=== PATIENT | male | born 1935 | race Caucasian/White ===

== ENCOUNTER 2019-04-24 00:55 | Day surgery (SDC) | payer MEDICARE, SELFPAY ==
[2019-04-08 13:19] VITALS: BMI 26.6
--- NOTE | 2019-04-23 21:47 | HP_ITS ---
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 HISTORY: The patient is 84, he presented with a growth on the right helix. This is just barely on the posterior aspect, it is 6 mm in diameter, pink and firm. Because of its tenderness, he finds it difficult to lie on that side. We discussed excision of this. I believe it is probably a skin cancer. We will do this under frozen section in the operating room. He understands there may be need for closure that could be slightly deforming to his ear and possibly including a skin graft. There also may be infection or numbness resulting from this surgery. He would like to proceed. MEDICATIONS: He takes: 1. Lisinopril. 2. Mirtazapine. 3. Gabapentin. 4. Acetaminophen. 5. 81 mg of aspirin. ALLERGIES: HE HAS NO KNOWN ALLERGIES TO MEDICATIONS. PAST SURGICAL HISTORY: He has had a prior hernia repair and left and right knee replacements. HABITS: He reports that he is a smoker of cigars. REVIEW OF SYSTEMS: He indicates just the arthritic joint pain. FAMILY HISTORY: Noncontributory. SOCIAL HISTORY: He lives in [place]. He is retired. PHYSICAL EXAMINATION: GENERAL: He is alert and informative. He is 5 feet 8 inches, 175 pounds, in no acute distress. HEENT EXAM: Reveals the mass just to the posterior aspect of his right upper helix. This is a 6 mm nodule. There is no palpable adenopathy. CHEST: Clear to auscultation. HEART: Regular rate and rhythm by palpation. ABDOMEN: Soft and nontender. EXTREMITIES: Normal. 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 PLAN: Excision under local anesthetic with frozen section. He will remain on his aspirin. [facility]
[2019-04-24] VITALS (10 sets, daily range): BP systolic 135–154; BP diastolic 68–83; PULSE 57–67; RESP 16–20; TEMP 36.2; O2SAT 90–98
--- NOTE | 2019-04-24 07:18 | WPDHPUPDATE1 ---
History and Physical Update Update Date/Time: 04/24/19 07:18 History and Physical has been reviewed, including an updated exam of the patient. There are NO changes in the patient's condition. Risks, benefits, and alternatives have been discussed and questions answered. Patient agrees to proceed with procedure.
--- NOTE | 2019-04-24 07:33 | SUR.PREOP ---
PT STATED HE DID NOT TAKE ANY HOME MEDICATIONS. HE PLANS TO TAKE WHEN HE GETS HOME FROM THE HOSPITAL
[2019-04-24] MEDS: LIDO 1%/EPINEPHRINE 1:100,000 20 ML VIAL 7 ML INFILTRATE (08:09)
--- NOTE | 2019-04-24 08:28 | SUR.OPER ---
EBL:5CC
--- NOTE | 2019-04-24 08:46 | PM.OP ---
Procedure Note - Brief Procedure Note - Brief Date of procedure: 04/24/19 Pre-op diagnosis: Suspicious Neoplasm Right Ear Post-op diagnosis: same Procedure performed: 1.0 cm excision of tender nodule of right ear with FS and intermediate repair 3.0 cm. Anesthesia: local Surgeon: Oscar Wong MD Estimated blood loss (mL): 1 Drains: No Packing: No Pathology: yes Complications: No immediate complications Condition: stable Disposition: same day
--- NOTE | 2019-04-24 09:09 | PM.PROC ---
Procedure Note - Detailed Date of procedure: 04/24/19 Pre-op diagnosis: Suspicious Neoplasm Right Ear Post-op diagnosis: same Procedure performed: 1 cm excision of tender nodule of the right ear with frozen section. Intermediate repair 3 cm Description of procedure: Jen Benítez Staacacia Hartzel site on the ear was marked while the patient was in the holding area. He was taken to the operative room and placed supine on the operating table. The area was prepped and draped in the usual fashion. The site was marked for excision and locally infiltrated with 1% lidocaine with epinephrine. The site was excised with about 3 mm margin. The most superior aspect was marked with a suture and the specimen was sent to frozen section. The pathologist said that it does not appear to be a skin cancer but all margins are free. The final diagnosis is deferred for permanent sections. The wound was closed by undermining 3-5 mm on all sides and and removing the standing cones on both ends. The repair was done with a running or interrupted 5 0 nylon suture. This was tolerated well. He is discharged home without prescriptions Surgeon: Oscar Wong MD
== END 2019-04-24 09:10 | disposition home or self-care (01) ==
PROVIDERS: PCP Family Medicine; Visit Provider Plastic Surgery
PROC: (CPT 11641; principal; 2019-04-24 07:30)
DX: C44.222 Squamous cell carcinoma of skin of right ear and external auricular canal (principal); Z72.0 Tobacco use; Z79.82 Long term (current) use of aspirin
CPT/HCPCS: 11641; 12052; 88305; 88331; A9270

== ENCOUNTER 2019-04-28 10:33 | Outpatient (CLI) | payer MEDICARE, SELFPAY ==
--- NOTE | ~2019-04-28 | XR_ITS ---
EXAMINATION: XR chest 2V EXAM DATE: 04/28/2019 10:42 INDICATION: Cough. TECHNIQUE: Frontal and lateral projections of the chest obtained and reviewed. There is no prior diane dy for comparison. FINDINGS: Ill-defined bibasilar airspace disease, could be developing bronchopneumonia. Please clini sparkle correlate. Cardiomediastinal silhouette is normal. There is no pneumothorax suspected. There ar e no pleural effusions. Cervical fusion hardware. Right midlung zone granuloma. IMPRESSION: Ill-defined bibasilar reticulonodular opacities, could be developing pneumonia. Suki finnegan diagnosis includes edema, chronic interstitial lung disease. Clinical correlation. Reviewed, dictated and finalized at location B. T PACKER FACE AND FILL IMPRESSION: Ill-defined bibasilar reticulonodular opacities, could be developi ng pneumonia. Differential diagnosis includes edema, chronic interstitial lung disease. Clinical correlation.
== END 2019-04-28 10:34 | disposition home or self-care (01) ==
LOC: ANHBWCIMG 10:36
PROVIDERS: PCP Family Medicine; Visit Provider Family Medicine
DX: R05 Cough (principal); Z87.891 Personal history of nicotine dependence; R91.8 Other nonspecific abnormal finding of lung field
CPT/HCPCS: 71046

== ENCOUNTER 2019-05-19 10:16 | Outpatient (CLI) | payer MEDICARE, SELFPAY ==
[2019-05-19 17:21] LABS: Add Urine Microscopic? NO; Appearance Urine Clear (Clear); Bilirubin Urine Negative (Negative); Blood Urine Negative (Negative); Color Urine Straw (Yellow); Glucose Urine UA Negative (Negative); Ketones Urine Negative (Negative); Leukocyte Esterase Ur Negative LEU/UL (Negative); Nitrate Urine Negative (Negative); Protein Urine Negative (Negative); Specific Grav Ur 1.013 (1.001-1.035); Urobilinogen Urine Negative mg/dL (<2.0)
[2019-05-19 17:27] LABS: Basophils Absolute Auto 0.1 K/mm3 (0.0-0.1); Basophils Percent Auto 0.6 % (0.2-1.2); Eosinophils Absolute Auto 0.2 K/mm3 (0-0.3); Eosinophils Percent Auto 1.4 % (0-4.4); Hematocrit 46.9 % (42.0-52.0); Hemoglobin 15.2 g/dL (14.0-18.0); Immature Granulocyte Absolute 0.13 K/mm3 (0.00-0.031); Immature Granulocyte Percent A 0.9 % (0-0.5); Lymphocytes Absolute Auto 1.93 K/mm3 (0.9-3.2); Lymphocytes Percent Auto 13.1 % (18.3-44.2); Mean Corpuscular HGB Conc 32.4 g/dl (32-36); Mean Corpuscular Hemoglobin 31.2 pg (26-34); Mean Corpuscular Volume 96.3 fl (80-100); Mean Platelet Volume 10.5 fl (7.4-10.4); Monocytes Absolute Auto 0.8 K/mm3 (0.1-0.6); Monocytes Percent Auto 5.2 % (2.6-8.5); Neutrophils Absolute Auto 11.6 K/mm3 (1.3-6.7); Neutrophils Percent Auto 78.8 % (45.5-73.1); Platelet Count Result 268 k/mm3 (150-375); Red Blood Count 4.87 M/mm3 (4.6-6.20); Red Cell Distribution Width 15.5 % (11.5-14.5); White Blood Count 14.7 K/mm3 (4.5-10.0)
[2019-05-19 17:28] LABS: Alanine Aminotransferase 18 U/L (4-50); Albumin Level 4.6 g/dL (3.5-5.1); Alkaline Phosphatase 102 U/L (38-126); Aspartate Amino Transferase 31 U/L (17-59); Bilirubin,Total 0.5 mg/dL (0.2-1.3); Blood Urea Nitrogen 41 mg/dL (9-20); Calcium 9.4 mg/dL (8.4-10.2); Carbon Dioxide 27 mmol/L (22-30); Chloride 97 mmol/L (98-107); Cholesterol 245 mg/dL (0-200); Estimated Glomerular Filt Rate 49; Glucose 119 mg/dL (75-110); HDL Direct 78 mg/dL; Potassium 4.8 mmol/L (3.4-5.0); Sodium 134 mmol/L (137-145); Triglycerides 248 mg/dL (<150)
[2019-05-19 17:39] LABS: LDL Cholesterol Direct 140 mg/dL
[2019-05-19 17:43] LABS: Vitamin D 25 Hydroxy 43.4 ng/mL
[2019-05-19 17:59] LABS: Prostate Specific Antigen 7.9 ng/mL (< OR = 4.0)
[2019-05-19 18:35] LABS: Folic Acid > 20.0 ng/mL (2.76->20)
== END 2019-05-19 10:17 | disposition home or self-care (01) ==
PROVIDERS: PCP Family Medicine; Visit Provider Family Medicine
DX: R05 Cough (principal); R97.20 Elevated prostate specific antigen [PSA]; I10 Essential (primary) hypertension; Z79.899 Other long term (current) drug therapy
CPT/HCPCS: 36415; 80053; 80061; 81003; 82306; 82607; 82746; 84153; 84443; 85025

== ENCOUNTER 2019-05-30 08:57 | Outpatient (CLI) | payer MEDICARE, SELFPAY ==
[2019-05-30 17:01] LABS: Basophils Absolute Auto 0.1 K/mm3 (0.0-0.1); Basophils Percent Auto 0.8 % (0.2-1.2); Eosinophils Absolute Auto 0.3 K/mm3 (0-0.3); Eosinophils Percent Auto 2.9 % (0-4.4); Hematocrit 41.3 % (42.0-52.0); Hemoglobin 13.3 g/dL (14.0-18.0); Immature Granulocyte Absolute 0.09 K/mm3 (0.00-0.031); Immature Platelet Fraction Pct 3.1 % (0.9-11.2); Lymphocytes Percent Auto 22.9 % (18.3-44.2); Mean Corpuscular HGB Conc 32.2 g/dl (32-36); Mean Corpuscular Hemoglobin 31.3 pg (26-34); Mean Corpuscular Volume 97.2 fl (80-100); Monocytes Absolute Auto 0.8 K/mm3 (0.1-0.6); Monocytes Percent Auto 8.4 % (2.6-8.5); Neutrophils Absolute Auto 5.9 K/mm3 (1.3-6.7); Platelet Count Result 230 k/mm3 (150-375); Red Blood Count 4.25 M/mm3 (4.6-6.20); Red Cell Distribution Width 15.9 % (11.5-14.5); White Blood Count 9.2 K/mm3 (4.5-10.0)
[2019-05-30 17:08] LABS: Blood Urea Nitrogen 39 mg/dL (9-20); Calcium 8.4 mg/dL (8.4-10.2); Carbon Dioxide 24 mmol/L (22-30); Chloride 104 mmol/L (98-107); Estimated Glomerular Filt Rate 53; Glucose 137 mg/dL (75-110); Magnesium 1.9 mg/dL (1.6-2.3); Phosphorus 4.3 mg/dL (2.5-4.5); Potassium 4.4 mmol/L (3.4-5.0); Sodium 137 mmol/L (137-145)
[2019-05-30 18:06] LABS: Vitamin D 25 Hydroxy 48.1 ng/mL
== END 2019-05-30 08:58 | disposition home or self-care (01) ==
LOC: ANHBWCLAB 08:59
PROVIDERS: PCP Family Medicine; Visit Provider Family Medicine
DX: R25.2 Cramp and spasm (principal); Z79.899 Other long term (current) drug therapy
CPT/HCPCS: 36415; 80048; 82306; 83735; 84100; 84443; 85025; 85055; 86140

== ENCOUNTER 2019-09-16 13:27 | Emergency (ER) | payer MEDICARE, SELFPAY ==
--- NOTE | ~2019-09-16 | XR_ITS ---
XR chest 2V 09/16/2019 14:13 Indication: Cough Procedure: 2 view chest Comparison: 04/28/2019 Findings: Coarse interstitial changes of the lung bases, likely chronic. Heart size normal. No edema or pneumothorax. No acute osseous abnormality. Impression: 1: Coarse bilateral interstitial infiltrates of the lung bases, likely chronic fibrosis. Reviewed, dictated and finalized at location B. Impression: 1: Coarse bilateral interstitial infiltrates of the lung bases, likely chronic fibrosis.
== END 2019-09-16 13:30 | disposition left against medical advice (07) ==
PROVIDERS: Emergency Provider Family Medicine; PCP Family Medicine
DX: R05 Cough (principal)
CPT/HCPCS: 71046; 99199

== ENCOUNTER 2019-12-24 17:06 | Emergency (ER) | payer MEDICARE, SELFPAY ==
[2019-12-24 17:15] VITALS: BP 188/134; PULSE 91; RESP 18; TEMP 37; O2SAT 98
--- NOTE | 2019-12-24 17:28 | ED.EXTPRO ---
HPI - Extremity Problem General Chief complaint: Extremity Injury, Lower Stated complaint: shortness of breath/cough/legs jerking Time Seen by Provider: 12/24/19 17:28 Source: patient History of Present Illness HPI Narrative: Patient presents with right knee pain. Patient states he has a chronic cough and short of breath at times. Patient states he is to see a learning support assistant for evaluation of his cough and breathing problems. Patient denies any shortness of breath at present no chest pain. Patient is here today because of his right knee pain. Patient does not recall any injury to his knee but had a knee replacement several years ago. Patient states he had x-ray of the knee 2 to 3 weeks ago which he thinks was normal. Patient states he ran out of his medication that usually normally takes for his pain and cannot get it refilled until the of this month.Patient states he ran out of his xtampza xr 13.5 mg and can not get any refills until the of this month. MD Complaint: extremity pain Related Data Home Medications Medication Instructions Recorded Confirmed aspirin 81 mg tablet,delayed 81 mg PO DAILY 01/23/19 12/15/19 release cholecalciferol (vitamin D3) 50 2,000 unit PO DAILY 01/23/19 12/15/19 mcg (2,000 unit) capsule melatonin 10 mg capsule 10 mg PO ONCE PRN cap 01/23/19 12/15/19 Allergies Allergy/AdvReac Type Severity Reaction Status Date / Time No Known Allergies Allergy Unverified 12/09/19 13:29 Review of Systems Review of Systems: Narrative: CONSTITUTIONAL: Denies fever, chills, or sweats. EYES: Denies visual changes, redness, or discharge. ENT: Denies rhinorrhea, congestion, sore throat, or otalgia. CARDIOVASCULAR: Denies chest pain, palpitations, or edema. RESPIRATORY: Denies cough or dyspnea. GASTROINTESTINAL: Denies abdominal pain, nausea, vomiting, or diarrhea. GENITOURINARY: Denies dysuria or hematuria. SKIN: Denies rash or itching. MUSCULOSKELETAL: Denies back pain, joint pain, or myalgia. NEUROLOGIC: Denies headache, numbness, or weakness. PSYCHIATRIC: Denies anxiety or depression. [facility] Past Medical History Medical History (Updated 12/24/19 @ 17:33 by Brittany R. Londono, GRAIN MILL WORKER) Age-related osteoporosis without current pathological fracture Anxiety Arthritis Bilateral chronic knee pain Current moderate episode of major depressive disorder FH: total knee replacement Generalized neuropathy Hypertension Moderate episode of recurrent major depressive disorder Other chronic pain Other halfway (current) drug therapy Surgical History Surgical History (Updated 12/24/19 @ 17:33 by JAIMEE Mcpherson) H/O hernia repair History of ear surgery History of knee replacement Social History Social History Smoking packs per day: 1 Smoking cigarettes per day: 20.0 Years smoked: 50 Smoking pack-years: 50.00 Smoking status: Light tobacco smoker Tobacco type: cigars Alcohol intake: never Substance use: never Comments At time of signature, agree with nursing past medical, surgical, social and family history. There is no relevant family history pertinent to the presenting complaint Exam Narrative: Exam Narrative: GENERAL: Well-appearing, well-nourished, and in no acute distress. HEAD: Normocephalic, atraumatic. EYES: PERRLA and EOMI. ENT: Nares clear, no rhinorrhea or epistaxis. Mucous membranes moist. NECK: Supple. CHEST: Clear to auscultation. No respiratory distress. HEART: Regular rate and rhythm. No murmur heard. Normal peripheral pulses. ABDOMEN: Soft, nontender, nondistended, normal active bowel sounds. EXTREMITIES: Normal range of motion. No edema. SKIN INTACT. NO DEFORMITY. NORMAL ROM, HAS FULL EXTENSION AND FLEXION. COMPARTMENTS SOFT. NEGATIVE ANTERIOR, POSTERIOR DRAWER SIGNS ON TEST. NO CREPITUS. DP PULSE, NORMAL CAPILLARY REFILL MCMURRAYS, PAIN TO RIGHT MEDIAL AND DISTAL KNEE WITH KNEE FLEXION, INTERNAL AND EXTER
== END 2019-12-24 17:48 | disposition home or self-care (01) ==
PROVIDERS: Emergency Provider Nurse Practitioner Family; PCP Family Medicine
DX: S80.01XA Contusion of right knee, initial encounter (principal); X58.XXXA Exposure to other specified factors, initial encounter; Z96.653 Presence of artificial knee joint, bilateral; M19.90 Unspecified osteoarthritis, unspecified site; I10 Essential (primary) hypertension; F17.210 Nicotine dependence, cigarettes, uncomplicated; Z79.82 Long term (current) use of aspirin; G62.9 Polyneuropathy, unspecified
CPT/HCPCS: 99212; G0463

== ENCOUNTER 2020-04-23 18:46 | Inpatient (IN) | payer MEDICARE, SELFPAY ==
[2020-04-23] VITALS (28 sets, daily range): BP systolic 101–142; BP diastolic 49–103; PULSE 61–112; RESP 13–24; TEMP 36.2; O2SAT 93–99
--- NOTE | ~2020-04-23 | XR_ITS ---
EXAMINATION: XR chest 1V portable EXAM DATE: 04/23/2020 20:07 INDICATION: Shortness of breath, extremity swelling. TECHNIQUE: Portable AP frontal chest x-ray was obtained. Comparison is made to prior examination from 09/16/2019, 04/28/2019. FINDINGS: There is mild cardiomegaly. Again there is abnormal basilar reticulation. Given this has be en present on last 2 chest x-rays, probably interstitial lung disease. Can't exclude acute component of pulmonary edema. No confluent consolidation, pneumothorax or pleural effusion suspected. There is aortic arteriosclerosis. There are bony degenerative changes. Cervical fusion hardware. IMPRESSION: 1. Increased basilar reticulation, chronic interstitial lung disease. 2. Superimposed pulmonary edema not excludable. 3. Cardiomegaly. Reviewed, dictated and finalized at location A. FARMER
--- NOTE | ~2020-04-23 | US_ITS ---
EXAMINATION: US venous doppler [facility] DATE: 04/24/2020 13:28 INDICATION: Bilateral lower limb edema TECHNIQUE: Mcarthur scale images without and with compression and Doppler images of the bilateral lower e xtremity veins were obtained. COMPARISON: None FINDINGS: The right common femoral vein, profunda femoral vein, femoral vein, popliteal vein, peroneal trunk, p osterior tibial veins, and greater saphenous vein are patent. The left common femoral vein, profunda femoral vein, femoral vein, popliteal vein, peroneal trunk, po sterior tibial veins, and greater saphenous vein are patent. IMPRESSION: 1. Patent bilateral lower extremity veins. No evidence of deep venous thrombosis. Reviewed, dictated and finalized at location A. TITATIVE RESEARCHER IMPRESSION: 1. Patent bilateral lower extremity veins. No evidence of deep venous thrombosi s.
--- NOTE | ~2020-04-23 | US_ITS ---
EXAMINATION: US renal BI DATE: 04/24/2020 13:28 INDICATION: Acute kidney injury TECHNIQUE: Multiple grayscale and Doppler ultrasound images of the kidneys were obtained. COMPARISON: None. FINDINGS: The right kidney measures 8.6 x 4.5 x 4.7 cm. The left kidney measures 8.6 x 5.4 x 6.6 cm. The kidneys demonstrate increased parenchymal echogenicity. There is no hydronephrosis. The bladder i s decompressed by Painter catheter. IMPRESSION: 1. Medical renal disease with bilateral renal atrophy. Reviewed, dictated and finalized at location A. RSITY SPECIALIST
--- NOTE | 2020-04-23 19:28 | ECG_ITS ---
Measurements Intervals [place] Rate: 94 P: AL: 0 QRS: -31 QRSD: 107 T: 61 QT: 381 QTc: 478 Interpretive Statements SINUS RHYTHM CHANGED TO VENTRICULAR TACHYCARDIA VENTRICULAR COUPLETS LEFT AXIS DEVIATION INCOMPLETE RIGHT BUNDLE BRANCH BLOCK POOR R WAVE PROGRESSION, ANTERIOR LEADS BORDERLINE ST-T WAVE ABNORMALITY- HIGH LATERAL LEADS BASELINE ARTIFACT- I, III, AVL ABNORMAL ECG Electronically Signed On 04-24-2020 7:52:59 BALE PILER by Flako Silva D.O.
[2020-04-23 19:53] LABS: Basophils Absolute Auto 0.1 K/mm3 (0.0-0.1); Basophils Percent Auto 0.9 % (0.2-1.2); Eosinophils Absolute Auto 0.2 K/mm3 (0-0.3); Eosinophils Percent Auto 1.6 % (0-4.4); Hematocrit 26.9 % (42.0-52.0); Hemoglobin 8.7 g/dL (14.0-18.0); Immature Granulocyte Absolute 0.04 K/mm3 (0.00-0.031); Immature Granulocyte Percent A 0.4 % (0-0.5); Lymphocytes Absolute Auto 1.11 K/mm3 (0.9-3.2); Lymphocytes Percent Auto 11.8 % (18.3-44.2); Mean Corpuscular HGB Conc 32.3 g/dl (32-36); Mean Corpuscular Hemoglobin 31.8 pg (26-34); Mean Corpuscular Volume 98.2 fl (80-100); Monocytes Absolute Auto 0.7 K/mm3 (0.1-0.6); Monocytes Percent Auto 7.9 % (2.6-8.5); Neutrophils Absolute Auto 7.3 K/mm3 (1.3-6.7); Neutrophils Percent Auto 77.4 % (45.5-73.1); Platelet Count Result 300 k/mm3 (150-375); Red Blood Count 2.74 M/mm3 (4.6-6.20); Red Cell Distribution Width 15.6 % (11.5-14.5); White Blood Count 9.4 K/mm3 (4.5-10.0)
[2020-04-23 19:59] LABS: INR 1.1; Prothrombin Time 14.5 Seconds (11.1-14.7)
[2020-04-23 20:00] LABS: Partial Thromboplastin Time 36.3 SECONDS (22.3-36.8)
[2020-04-23 20:03] LABS: Anion Gap 7 mmol/L (8-16); Blood Urea Nitrogen 68 mg/dL (9-20); Calcium 8.2 mg/dL (8.4-10.2); Carbon Dioxide 22 mmol/L (22-30); Chloride 103 mmol/L (98-107); Estimated CRCL calculation 30 ml/min; Estimated Glomerular Filt Rate 34; Glucose 127 mg/dL (75-110); Potassium 5.2 mmol/L (3.4-5.0); Sodium 132 mmol/L (137-145)
--- NOTE | 2020-04-23 20:06 | ED.GENADULT ---
HPI - General Adult General Chief complaint: Shortness of Breath/Dyspnea Stated complaint: swelling, drainage legs, sob Time Seen by Provider: 04/23/20 19:53 Source: patient and family Limitations: no limitations History of Present Illness HPI narrative: Patient is 85 years old white male brought to the emergency room by his son-in-law complaining of swelling of the legs and the scrotum, shortness of breath and coughing for the last 2 weeks. Was admitted to [facility] 1 and half week ago and got discharged without a known diagnosis. Patient is DNR. Denies history of COVID-19 or exposure to anybody known having COVID-19. Patient denies any fever, chills, nausea, vomiting, chest pain. Patient is telling me that he is leaking out of the skin lately. History of hypertension, used to be on aspirin which is stopped recently for unknown reason. Related Data Home Medications Medication Instructions Recorded Confirmed aspirin 81 mg tablet,delayed 81 mg PO DAILY 01/23/19 04/12/20 release cholecalciferol (vitamin D3) 50 2,000 unit PO DAILY 01/23/19 04/12/20 mcg (2,000 unit) capsule melatonin 10 mg capsule 10 mg PO ONCE PRN cap 01/23/19 04/12/20 carvedilol 3.125 mg tablet 3.125 mg PO Q12H 04/22/20 furosemide 40 mg tablet 40 mg PO BID 04/22/20 hydralazine 10 mg tablet 10 mg PO TID 04/22/20 isosorbide dinitrate 5 mg tablet 5 mg PO BID 04/22/20 ropinirole 0.5 mg tablet 0.5 mg PO DAILY tablet 04/22/20 Allergies Allergy/AdvReac Type Severity Reaction Status Date / Time No Known Allergies Allergy Verified 04/23/20 20:19 Review of Systems Review of Systems: Narrative: CONSTITUTIONAL: Denies fever, chills, or sweats. EYES: Denies visual changes, redness, or discharge. ENT: Denies rhinorrhea, congestion, sore throat, or otalgia. CARDIOVASCULAR: Denies chest pain, palpitations, or edema. RESPIRATORY: Coughing, shortness of breath GASTROINTESTINAL: Denies abdominal pain, nausea, vomiting, or diarrhea. GENITOURINARY: Denies dysuria or hematuria. SKIN: Generalized edema MUSCULOSKELETAL: Denies back pain, joint pain, or myalgia. NEUROLOGIC: Denies headache, numbness, or weakness. PSYCHIATRIC: Denies anxiety or depression. [facility] Past Medical History Medical History Age-related osteoporosis without current pathological fracture Anxiety Arthritis Bilateral chronic knee pain Current moderate episode of major depressive disorder FH: total knee replacement Generalized neuropathy Hypertension Moderate episode of recurrent major depressive disorder Other chronic pain Other technician terminal and repeater (current) drug therapy Surgical History Surgical History H/O hernia repair History of ear surgery History of knee replacement Social History Social History Smoking packs per day: 1 Smoking cigarettes per day: 20.0 Years smoked: 50 Smoking pack-years: 50.00 Smoking status: Light tobacco smoker Tobacco type: cigars Second hand tobacco smoke exposure: No Alcohol intake: never Substance use: never Substance use type: does not use Gender identity (if verbalized by the patient): Male Spiritual care concerns: No Agree to blood products: Yes Exam Narrative: Exam Narrative: General appearance: Well-developed, well-nourished Skin: 3+ edema lower extremities, scrotum and penis Head: Normocephalic, nontraumatic Eyes: Clear conjunctiva ENT: Oropharynx normal, ears normal, nose normal Neck: Supple, nontender Chest and respiratory: Diminished and fair entry bilaterally, basal rales bilaterally. Heart: Irregular heartbeat Abdomen: Soft, nontender, no organomegaly, quiet bowel sounds, rectal exam showed no stool in the rectal pouch, guaiac negative Vascular: Normal peripheral pulses, normal capillary refill. Musculoskeletal: Normal range of motion, nontender back Ne
[2020-04-23] MEDS: NITROGLYCERIN OINTMENT 1 INCH DOSE (20:10)
[2020-04-23] MEDS: FUROSEMIDE INJ 100 MG/10 ML VIAL 60 MG IV PUSH (20:16)
--- NOTE | 2020-04-23 20:16 | PC.NURSE ---
PENNY Alamo RN administered 60 mg lasix and placed 1 inch nitro paste on Pt. L arm.
[2020-04-23 20:27] LABS: NT Pro B Type Natriuretic Pept 27400 PG/ML (5-100)
[2020-04-23 20:28] LABS: NT Pro B Type Natriuretic Pept 27700 PG/ML (5-100); Troponin I 0.067 ng/mL (0.000-0.034)
[2020-04-23] MEDS: MORPHINE SULFATE (*CRX) 4 MG/ML INJ IV PUSH (20:56)
[2020-04-23] MEDS: ONDANSETRON INJ 4 MG/2 ML VIAL IV PUSH (20:56)
[2020-04-23] MEDS: AMIODARONE 150 MG/D5W 100 ML 150 MG/100 ML BAG 600 MG IV CONT (20:58)
--- NOTE | 2020-04-23 21:55 | ECG_ITS ---
Measurements Intervals [place] Rate: 86 P: [place]: 0 QRS: -53 QRSD: 139 T: 121 QT: 387 QTc: 465 Interpretive Statements SINUS RHYTHM VENTRICULAR TRIPLETS AND VENTRICULAR PREMATURE COMPLEXES INTRAVENTRICULAR CONDUCTION DELAY POOR R WAVE PROGRESSION, ANTERIOR LEADS BORDERLINE T WAVE ABNORMALITY- INF/HIGH LAT LEADS BASELINE ARTIFACT- V6 ABNORMAL ECG Electronically Signed On 04-24-2020 8:00:59 COMMERCIAL CLEANER by Flako Silva D.O.
--- NOTE | 2020-04-23 21:55 | ECG_ITS ---
Measurements Intervals [place] Rate: 89 P: 104 IA: 147 QRS: -52 QRSD: 119 T: 116 QT: 337 QTc: 412 Interpretive Statements SINUS RHYTHM FREQUENT VENTRICULAR TRIPLETS INCOMPLETE RIGHT BUNDLE BRANCH BLOCK POOR R WAVE PROGRESSION, ANTERIOR LEADS BORDERLINE ST ABNORMALITY- HIGH LATERAL LEADS ABNORMAL ECG Electronically Signed On 04-24-2020 7:55:25 KITCHEN CLERK by Flako Silva D.O.
[2020-04-24] VITALS (26 sets, daily range): BP systolic 107–131; BP diastolic 45–99; PULSE 47–114; RESP 13–20; TEMP 36.1–37.2; O2SAT 90–100; BMI 32.8
[2020-04-24 03:23] LABS: Troponin I 0.069 ng/mL (0.000-0.034)
[2020-04-24] MEDS: HYDROcodone/acetaminophen (*CRX) 10-325 MG TABLET 1 TAB PO ×3 (04:41→21:43)
[2020-04-24 05:31] LABS: Anion Gap 9 mmol/L (8-16); Blood Urea Nitrogen 66 mg/dL (9-20); Calcium 8.5 mg/dL (8.4-10.2); Carbon Dioxide 21 mmol/L (22-30); Chloride 102 mmol/L (98-107); Estimated CRCL calculation 30 ml/min; Estimated Glomerular Filt Rate 34; Glucose 121 mg/dL (75-110); Potassium 5.1 mmol/L (3.4-5.0); Sodium 132 mmol/L (137-145)
[2020-04-24] MEDS: NITROGLYCERIN OINTMENT 1 INCH DOSE TRANSDERM (05:34)
[2020-04-24 05:49] LABS: Troponin I 0.062 ng/mL (0.000-0.034)
--- NOTE | 2020-04-24 08:07 | PM.IMHP ---
H&P: HPI History of Present Illness Date/Time: 04/24/20 08:07 Chief Complaint: Scrotal and leg edema Narrative: Chong Ward is a 85 year old male with HTN and ?CHF here for LOPEZ with scrotal and leg edema. Patient states he has had lower extremity edema with scrotal edema for the past 2-3 weeks. He presented to [facility] and was hospitalized for 5 days. He initially states that they did not know what was wrong with him but later states that was diagnosed with congestive heart failure. He returned home and was there for about 10 days until returning to [facility] for the similar symptoms and was hospitalized again for 2 more days. He was discharged on SundayApril 16. Since that time he has noted increasing edema including scrotal edema. Records in the chart showing patient hospitalized at [facility] from 04/02 to 04/07/20. He was treated for cellulitis of the left foot. He also had RENATO/CKD and hyponatremia and decompensated dCHF. Echo with EF 45-50%, no wall motion abnormalities, Grade II diastolic dysfunction, JAIME but no RVSP measurements. Stress test 04/06/20 showing no evidence of VT or infarction but EF 38% with global HK. He does have a hx of CAD with ZOILA to RCA in 2012. CT of the abdomen showing pulmonary fibrosis. Pulmonary HTN listed in the problem list. On 04/07/20, Cr 1.3, potassium 5.1 and Hgb 8.8. Albumin 3.3 Patient states he was diagnosed with sleep apnea 20 years ago. He wore CPAP for about a week but nothing since that time. Patient denies any PND or orthopnea. He has dyspnea on exertion but no shortness of breath at rest. No chest pain or palpitations. Positive weight gain. When he lies down his legs do shake and this improves with walking. He normally walks with a cane. He denies any fever, chills, vision changes, odynophagia, dysphagia, hearing loss. He has been having a cough that has worsened over the past 1-2 days productive whitish sputum. No history of COPD or asthma. He has not been wheezing. No outpatient exposure to COVID. 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 No nausea, vomiting, diarrhea, constipation, melena or hematochezia. No abdominal pain. Last colonoscopy was 20+ years ago. No dysuria or hematuria. He does have difficulty voiding with a weak stream. Denies depression, anxiety, SI or HI. Chronic narcotics since 1997 for knee pain; takes Hydrocodone 5-6 tabs per day. Denies any focal weakness but does feel tired very early if he over exerts. He walks with a cane; no recent falls. He has noted sores in his feet that began about 10 days ago. His legs have been weeping. He has sores on his bilateral hands with hand edema as well. Because of the worsening symptoms over the past week, patient presented to emergency room for evaluation. In the emergency room, patient was hemodynamically stable. Chest x-ray showed increase basilar reticulation consistent with chronic interstitial lung disease but cannot exclude pulmonary edema. Hemoglobin is 8.7 (13.3 about 1 year ago). Potassium is 5.2. BUN 68 and creatinine 1.9. Creatinine was 1.3 one year ago. Troponins are elevated at 0.069 but flat. BNP was 16918. EKG showing LAD, NSR with runs of ventricular Tach, poor R wave progression and borderline ST-T wave changes high lateral. He was given Lasix IV and NTP; Amiodarone given once but not continued. Patient admitted for further care. Review of Systems Review of Systems: All systems reviewed & are unremarkable except as noted in HPI and below [facility] Past Medical History Medical History (Updated 04/26/20 @ 13:31 by Cecilio Gonzalez MD) Acute on chronic combined systolic and diastolic CHF (congestive heart failure) Acute on chronic right heart failure Age-related osteoporosis without current pathological fracture Anxiety Arthritis Bilateral chronic knee pain BPH (benign
[2020-04-24] MEDS: hydrALAZINE 10 MG TABLET PO ×2 (11:24→17:32)
[2020-04-24] MEDS: CHOLECALCIFEROL 1,000 UNITS TABLET 2000 UNITS PO (11:24)
[2020-04-24] MEDS: MULTIVITAMINS /C LUTEIN (CENTRUM SILVER) TABLET *BKC 1 TAB PO (11:24)
[2020-04-24] MEDS: ASPIRIN 81 MG ENTERIC TABLET PO (11:24)
[2020-04-24] MEDS: carvediloL 3.125 MG TABLET PO ×2 (11:24→21:44)
[2020-04-24] MEDS: GABAPENTIN 300 MG CAPSULE PO (11:24)
[2020-04-24] MEDS: FUROSEMIDE INJ 40 MG/4 ML VIAL IV PUSH ×2 (11:25→21:45)
[2020-04-24] MEDS: ISOSORBIDE DINITRATE 5 MG TABLET PO ×2 (11:25→17:32)
[2020-04-24 12:55] LABS: Immature Reticulocyte Fraction 31.1 % (3.0-15.9); Reticulocyte Hemoglobin Conten 26.5 pg (28.2-35.7); Reticulocyte Percent 4.06 % (0.7-4.3); Reticulocytes Absolute 0.11 B/L (32.2-175.7)
[2020-04-24 13:12] LABS: Alanine Aminotransferase 14 U/L (4-50); Albumin Level 3.2 g/dL (3.5-5.1); Alkaline Phosphatase 51 U/L (38-126); Anion Gap 7 mmol/L (8-16); Aspartate Amino Transferase 26 U/L (17-59); Bilirubin,Total 0.2 mg/dL (0.2-1.3); Blood Urea Nitrogen 65 mg/dL (9-20); Carbon Dioxide 24 mmol/L (22-30); Chloride 100 mmol/L (98-107); Creatine Kinase 104 U/L (55-170); Estimated CRCL calculation 31 ml/min; Estimated Glomerular Filt Rate 34; Glucose 141 mg/dL (75-110); Magnesium 1.7 mg/dL (1.6-2.3); Potassium 4.8 mmol/L (3.4-5.0); Sodium 131 mmol/L (137-145)
[2020-04-24 13:41] LABS: Prostate Specific Antigen 10.3 ng/mL (< OR = 4.0)
[2020-04-24] MEDS: HEPARIN SODIUM 5,000 UNITS/ML VIAL 5000 UNITS SUB-Q ×2 (14:09→21:45)
[2020-04-24 14:34] LABS: Folic Acid > 20.0 ng/mL (2.76->20)
[2020-04-24 14:47] LABS: Add Urine Microscopic? YES; Appearance Urine Clear (Clear); Bacteria Urine Trace /hpf; Bilirubin Urine Negative (Negative); Blood Urine 2+ (Negative); Color Urine Straw (Yellow); Glucose Urine UA Negative (Negative); Ketones Urine Negative (Negative); Leukocyte Esterase Ur 2+ LEU/UL (Negative); Mucus Urine Rare /lpf; Nitrate Urine Negative (Negative); Protein Urine Negative (Negative); RBC Urine 21-50 /hpf (0-2); Squamous Epithelial Cell Urine Rare /hpf (Few); Urobilinogen Urine Negative mg/dL (<2.0)
[2020-04-24 15:18] LABS: Iron 19 ug/dL (49-181)
[2020-04-24 15:30] LABS: Percent Iron Saturation 5 % (20-50)
--- NOTE | 2020-04-24 15:42 | PM.CNCAR ---
Assessment and Plan Assessment and plan (1) Acute on chronic combined systolic and diastolic CHF (congestive heart failure): Code(s): I50.43 - Acute on chronic combined systolic (congestive) and diastolic (congestive) heart failure Status: Acute Assessment and Plan: Severe lower extremity edema secondary to CHF, probably more right-sided than left. Cardiomyopathy with EF 38% by Lexiscan, 45-50% by echo. Does not appear to have nephrotic syndrome. Patient may have underlying sleep apnea and interstitial fibrosis which is aggravating his cardiac situation. Pulmonary pressure cannot be estimated on the last echo however. Reports that he was not sent home with any long-term furosemide, although patient may have some cognitive dysfunction and need assistance with his medications with home health care on discharge.. Also the patient reports a high sodium intake. Counseled about that. Agree with furosemide 40 mg IV push b.i.d.. Continue carvedilol, lisinopril and hydralazine as blood pressure tolerates. (2) Acute on chronic right heart failure: Code(s): I50.813 - Acute on chronic right heart failure Status: Acute Assessment and Plan: Possibly aggravated by interstitial lung disease and sleep apnea. (3) Ventricular tachycardia (paroxysmal): Code(s): I47.2 - Ventricular tachycardia Status: Acute Assessment and Plan: Frequent PVCs and complex ectopy such as ventricular triplets and runs of nonsustained ventricular tachycardia on Tele. Was given a dose of IV amiodarone in the ER. No evidence of acute ischemia. Will try to increase carvedilol to 6.25 mg BID and keep potassium and magnesium in the high normal range. So far asymptomatic; will see if this settles down as the patient's CHF improves. (4) Acute on chronic renal failure: Code(s): N17.9 - Acute kidney failure, unspecified; N18.9 - Chronic kidney disease, unspecified Status: Acute Assessment and Plan: Acute on chronic kidney disease. Daily BMPs (5) CAD (coronary artery disease): Code(s): I25.10 - Atherosclerotic heart disease of [place] coronary artery without angina pectoris Status: Inactive Assessment and Plan: History of RCA stent in 2012, prior Left anterior descending stent. No chest discomfort. Very slight elevation of troponin with a flat curve, doubt any acute ischemic event. (6) CANDELARIO (obstructive sleep apnea): Code(s): G47.33 - Obstructive sleep apnea (adult) (pediatric) Status: Inactive Assessment and Plan: Untreated. Will check a apnea link while he is here. History of Present Illness History of Present Illness Consult date/time: 04/24/20 15:42 Requesting physician: Cecilio Gonzalez MD Consult reason: congestive heart failure Reason For Visit: chf, anemia, jorge, pvc Narrative: Date of Service: 04/24/2020 Mr. Chong Ward is an 85-year-old with right and left systolic and diastolic heart failure whom I was asked to see at the request of the hospitalists for my advice and opinion regarding his heart failure in consultation. The patient was admitted to [facility] 04/02/2020 to 04/07/2020 for cellulitis of his left foot, acute kidney injury, hyponatremia and decompensated CHF. Lexiscan stress test 04/06/2020 showed no evidence of ischemia, EF 38%. Echo 04/03/2020 showed EF 45-50%, mild global hypo, no significant valve disease, unable to estimate pulmonary artery pressure. The patient was again admitted on 04/16/2020 to [facility] with CHF and edema to his groin. Telemetry showed new AFib RVR versus NSR
[2020-04-24 17:12] LABS: Free T4 Free Thyroxine Reflex 0.84 ng/dL (0.78-2.19)
[2020-04-24 17:55] LABS: Total Triiodothyronine (T3) 0.82 NG/ML (0.97-1.69)
[2020-04-24] MEDS: MIRTAZAPINE 30 MG TABLET PO (21:44)
[2020-04-24] MEDS: rOPINIRole HCL 0.5 MG TABLET PO (21:44)
[2020-04-25] VITALS (19 sets, daily range): BP systolic 103–129; BP diastolic 40–78; PULSE 54–110; RESP 16–20; TEMP 36.1–36.4; O2SAT 92–100
[2020-04-25 04:48] LABS: Hematocrit 27.8 % (42.0-52.0); Mean Corpuscular HGB Conc 32.4 g/dl (32-36); Mean Corpuscular Hemoglobin 31.6 pg (26-34); Mean Corpuscular Volume 97.5 fl (80-100); Mean Platelet Volume 9.6 fl (7.4-10.4); Platelet Count Result 282 k/mm3 (150-375); Red Blood Count 2.85 M/mm3 (4.6-6.20); Red Cell Distribution Width 15.3 % (11.5-14.5); White Blood Count 11.3 K/mm3 (4.5-10.0)
[2020-04-25 05:01] LABS: Albumin Level 3.2 g/dL (3.5-5.1); Anion Gap 6 mmol/L (8-16); Blood Urea Nitrogen 62 mg/dL (9-20); Calcium 8.1 mg/dL (8.4-10.2); Carbon Dioxide 25 mmol/L (22-30); Chloride 100 mmol/L (98-107); Cholesterol 110 mg/dL (0-200); Estimated CRCL calculation 31 ml/min; Estimated Glomerular Filt Rate 34; Glucose 121 mg/dL (75-110); HDL Direct 43 mg/dL; Magnesium 1.8 mg/dL (1.6-2.3); Phosphorus 5.9 mg/dL (2.5-4.5); Potassium 4.8 mmol/L (3.4-5.0); Sodium 131 mmol/L (137-145); Triglycerides 93 mg/dL (<150)
[2020-04-25 05:08] LABS: Complement C3 112 mg/dL (88-165)
[2020-04-25 05:12] LABS: LDL Cholesterol Direct 51 mg/dL
[2020-04-25] MEDS: HEPARIN SODIUM 5,000 UNITS/ML VIAL 5000 UNITS SUB-Q ×3 (05:56→20:12)
[2020-04-25 07:46] LABS: Hepatitis B Surface Antigen Negative (Negative)
[2020-04-25 08:04] LABS: Hepatitis B Surface Anti Res Negative; Hepatitis C Virus Antibody Negative (Negative)
[2020-04-25] MEDS: GABAPENTIN 300 MG CAPSULE PO (09:52)
[2020-04-25] MEDS: FUROSEMIDE INJ 40 MG/4 ML VIAL IV PUSH ×2 (09:52→20:11)
[2020-04-25] MEDS: MULTIVITAMINS /C LUTEIN (CENTRUM SILVER) TABLET *BKC 1 TAB PO (09:52)
[2020-04-25] MEDS: hydrALAZINE 10 MG TABLET PO ×3 (09:52→16:22)
[2020-04-25] MEDS: ASPIRIN 81 MG ENTERIC TABLET PO (09:53)
[2020-04-25] MEDS: ISOSORBIDE DINITRATE 5 MG TABLET PO ×2 (09:53→16:23)
[2020-04-25] MEDS: carvediloL 3.125 MG TABLET PO (09:53)
[2020-04-25] MEDS: CHOLECALCIFEROL 1,000 UNITS TABLET 2000 UNITS PO (09:54)
[2020-04-25] MEDS: HYDROcodone/acetaminophen (*CRX) 10-325 MG TABLET 1 TAB PO ×3 (09:59→20:15)
[2020-04-25] MEDS: IRON SUCROSE COMPLEX 100 MG in SODIUM CHLORIDE 0.9% IV 50 ML 220 MG IVPB (10:00)
--- NOTE | 2020-04-25 10:40 | PM.PNCARD ---
Progress Note: A&P Assessment and Plan (1) Acute on chronic combined systolic and diastolic CHF (congestive heart failure): Code(s): I50.43 - Acute on chronic combined systolic (congestive) and diastolic (congestive) heart failure Status: Acute Assessment and Plan: Severe lower extremity and sccrotal edema secondary to CHF, probably more right-sided than left. Cardiomyopathy with EF 38% by Lexiscan, 45-50% by echo. Does not appear to have nephrotic syndrome. Patient may have underlying sleep apnea and interstitial fibrosis which is aggravating his cardiac situation. Pulmonary pressure cannot be estimated on the last echo however. Reports that he was not sent home with any long-term furosemide, although patient may have some cognitive dysfunction and need assistance with his medications with home health care on discharge.. Also the patient reports a high sodium intake. Counseled about that. Cont. furosemide 40 mg IV push b.i.d.. Slowly diuresing. Continue carvedilol, and hydralazine/nitrates as blood pressure tolerates. Encouraged pt to stay for a few days to get some good diuresis prior to discharge. May need HHC on discharge as I wonder about pt's cognition and ability to comply. (2) Acute on chronic right heart failure: Code(s): I50.813 - Acute on chronic right heart failure Status: Acute Assessment and Plan: Possibly aggravated by interstitial lung disease and sleep apnea. (3) Ventricular tachycardia (paroxysmal): Code(s): I47.2 - Ventricular tachycardia Status: Acute Assessment and Plan: Asymptomatic but frequent PVCs and complex ectopy such as ventricular triplets and runs of nonsustained ventricular tachycardia up to 14 beats on Tele. No evidence of acute ischemia, neg Sera 03/2020. Increased carvedilol fr 3.125 mg to 12.5 mg BID and keep potassium and magnesium in the high normal range. Daily BMP. So far asymptomatic; will see if this settles down as the patient's CHF improves. Keep on telemetry. (4) Acute on chronic renal failure: Code(s): N17.9 - Acute kidney failure, unspecified; N18.9 - Chronic kidney disease, unspecified Status: Acute Assessment and Plan: Acute on chronic kidney disease, renal function stable with diuresis. Daily BMPs (5) CAD (coronary artery disease): Code(s): I25.10 - Atherosclerotic heart disease of [place] coronary artery without angina pectoris Status: Inactive Assessment and Plan: History of RCA stent in 2012, prior Left anterior descending stent. No chest discomfort. Very slight elevation of troponin with a flat curve, doubt any acute ischemic event. (6) CANDELARIO (obstructive sleep apnea): Code(s): G47.33 - Obstructive sleep apnea (adult) (pediatric) Status: Inactive Assessment and Plan: Untreated. Apnea link tonight. Subjective Date/time seen: 04/25/20 10:40 Interval history: Follow-up for acute on chronic systolic and diastolic CHF, right-sided greater than left-sided with severe lower extremity edema. EF 38% by Lexiscan, 45-50% by echo 2020. PVCs and nonsustained V-tach. Acute on chronic renal failure, history of CAD and CANDELARIO not on CPAP. Date of service 04/25/2020: Feeling well, not requiring oxygen, walking in his room with a cane. Some LOPEZ. Legs are ?leaking? and wrapped. Stay still with bad lower extremity and scrotal edema although he thinks the scrotal edema has improved. Diuresed 600 cc yesterday and 600 cc so far today. Telemetry shows occasional to frequent PVCs, some ventricular bigeminy, and occasional nonsustained V-tach up to 14 beats. Jose
--- NOTE | 2020-04-25 14:01 | PM.IMPN ---
Progress Note: A&P Assessment and Plan (1) CHF (congestive heart failure): Qualifiers: Heart failure chronicity: unspecified Heart failure type: unspecified Qualified Code(s): I50.9 - Heart failure, unspecified Code(s): I50.9 - Heart failure, unspecified Status: Acute Assessment and Plan: Patient with massive bilateral lower extremity edema with scrotal edema. Recent Echo showing EF 45-50% but right sided pressures poorly evaluated. [place] CHF related; consider right-sided failure as well. Chest x-ray showing interstitial fibrosis but [place] [address]. Dopplers negative for DVT. Cardiac ischemia seems less likely given the recent normal stress test. UA showing no proteinuria making nephrotic syndrome unlikely. UOP 1900 (-580) yesterday on Lasix 40mg IV BID. Will continue IV diuretics and add metolazone. Monitor renal function closely. Discussed with Cardiology and appreciate their input. (2) RENATO (acute kidney injury): Code(s): N17.9 - Acute kidney failure, unspecified Status: Acute Assessment and Plan: Baseline creatinine 1.3. Creatinine worse this admission at 1.9. Renal US showing medical renal disease with bilateral renal atrophy. Higher Cr related to diuretics. UA showing 2+ blood and 2+ LE and 10-15WBC. UTI? Workup started. UCx pending. Monitor renal function closely on diuretic therapy. (3) Hyperkalemia: Code(s): E87.5 - Hyperkalemia Status: Acute Assessment and Plan: Potassium elevated at 5.2. Repeat levels normal now. TSH and cortisol levels okay. Continue to follow. (4) Ventricular tachycardia (paroxysmal): Code(s): I47.2 - Ventricular tachycardia Status: Acute Assessment and Plan: EKG and tele noted with frequent runs of PVCs/NSVT/bigeminy. Coreg has been resumed and dose increase. Could be related to his hyperkalemia. Mag level 1.8. Cardiology following. Replace Mag. (5) Elevated troponin: Code(s): R77.8 - Other specified abnormalities of plasma proteins Status: Acute Assessment and Plan: Troponins are elevated but flat. EKG noted - as above. [place] Type II AR from demand ischemia from the CHF and/or from his RENATO/CKD. (6) Anemia: Qualifiers: Anemia type: unspecified type Qualified Code(s): D64.9 - Anemia, unspecified Code(s): D64.9 - Anemia, unspecified Status: Acute Assessment and Plan: Hgb 8.7 on admission and stable from last admission in [place]. On chart review, do not see iron studies, etc. Immature retic fraction high but absolute retic low to suggest BM involvement. Iron deficiency by labs so started on IV iron. Stool guaiac ordered. Repeat Hgb stable. Follow (7) Ulcers of both lower legs: Code(s): L97.919 - Non-pressure chronic ulcer of unspecified part of right lower leg with unspecified severity; L97.929 - Non-pressure chronic ulcer of unspecified part of left lower leg with unspecified severity Status: Acute Assessment and Plan: Multiple LE ulcers related to the edema with weeping. 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 weekday babysitter consult. Dressing changes. Improve edema. (8) CKD (chronic kidney disease): Code(s): N18.9 - Chronic kidney disease, unspecified Status: Acute Assessment and Plan: Baseline Cr 1.3. Here, Cr higher at 1.9. As above. (9) Pulmonary fibrosis: Code(s): J84.10 - Pulmonary fibrosis, unspecified Status: Acute Assessment and Plan: Chronic pulmonary fibrosis. Related to work exposure? Not on O2. Unclear if he has had a workup for this. Follow (10) Hypertension: Code(s): I10 - Essential (primary) hypertension Status: Acute Assessment and Plan: BP well controlled. Monitor closely. (11) DVT prophylaxis: Code(s): Z29.9 - Encounter for prophylactic measures,
[2020-04-25] MEDS: polyethylene glycoL 3350 17 GM POWD.PACK PO (14:27)
[2020-04-25] MEDS: MAGNESIUM SULF 2 GM/WATER 50ML 2 GM/50 ML BAG IVPB (16:21)
[2020-04-25] MEDS: carvediloL 12.5 MG TABLET PO ×2 (16:22→20:11)
[2020-04-25] MEDS: metOLazone 5 MG TABLET PO ×2 (16:23→20:11)
[2020-04-25] MEDS: EUCERIN CREAM 120 GM JAR 1 APPLIC TOPICAL (16:23)
[2020-04-25] MEDS: AMIODARONE 150 MG/D5W 100 ML 150 MG/100 ML BAG 600 MG IV CONT (20:10)
[2020-04-25] MEDS: rOPINIRole HCL 0.5 MG TABLET PO (20:11)
[2020-04-25] MEDS: AMIODARONE HCL 200 MG TABLET 400 MG PO (20:11)
[2020-04-25] MEDS: MIRTAZAPINE 30 MG TABLET PO (20:11)
[2020-04-26] VITALS (20 sets, daily range): BP systolic 100–143; BP diastolic 40–48; PULSE 47–101; RESP 16–20; TEMP 36–36.6; O2SAT 93–99
[2020-04-26] MEDS: HYDROcodone/acetaminophen (*CRX) 10-325 MG TABLET 1 TAB PO ×3 (02:20→20:10)
[2020-04-26] MEDS: MELATONIN 5 MG TABLET 10 MG PO ×2 (02:21→20:10)
--- NOTE | 2020-04-26 02:27 | PCRCNOTE ---
Patient did not want to wear the Apnea link anymore. He said he tried to wear it, but wants it off. Took Apnea link off of patient at 0226. Will upload what recorded on the report.
[2020-04-26 04:54] LABS: Hematocrit 26.8 % (42.0-52.0); Hemoglobin 8.6 g/dL (14.0-18.0); Mean Corpuscular HGB Conc 32.1 g/dl (32-36); Mean Corpuscular Hemoglobin 31.6 pg (26-34); Mean Corpuscular Volume 98.5 fl (80-100); Mean Platelet Volume 10.7 fl (7.4-10.4); Platelet Count Result 264 k/mm3 (150-375); Red Blood Count 2.72 M/mm3 (4.6-6.20); Red Cell Distribution Width 15.4 % (11.5-14.5); White Blood Count 10.8 K/mm3 (4.5-10.0)
[2020-04-26 05:10] LABS: Anion Gap 6 mmol/L (8-16); Blood Urea Nitrogen 61 mg/dL (9-20); Carbon Dioxide 26 mmol/L (22-30); Chloride 99 mmol/L (98-107); Estimated CRCL calculation 32 ml/min; Estimated Glomerular Filt Rate 36; Glucose 141 mg/dL (75-110); Magnesium 2.1 mg/dL (1.6-2.3); Potassium 4.7 mmol/L (3.4-5.0); Sodium 131 mmol/L (137-145)
[2020-04-26] MEDS: HEPARIN SODIUM 5,000 UNITS/ML VIAL 5000 UNITS SUB-Q ×3 (06:00→20:11)
[2020-04-26] MEDS: ASPIRIN 81 MG ENTERIC TABLET PO (08:38)
[2020-04-26] MEDS: hydrALAZINE 10 MG TABLET PO ×3 (08:38→18:08)
[2020-04-26] MEDS: ATORVASTATIN 10 MG TABLET PO (08:38)
[2020-04-26] MEDS: MULTIVITAMINS /C LUTEIN (CENTRUM SILVER) TABLET *BKC 1 TAB PO (08:38)
[2020-04-26] MEDS: AMIODARONE HCL 200 MG TABLET 400 MG PO ×2 (08:38→18:07)
[2020-04-26] MEDS: polyethylene glycoL 3350 17 GM POWD.PACK PO (08:38)
[2020-04-26] MEDS: FUROSEMIDE INJ 40 MG/4 ML VIAL IV PUSH ×2 (08:38→20:11)
[2020-04-26] MEDS: GABAPENTIN 300 MG CAPSULE PO (08:39)
[2020-04-26] MEDS: IRON SUCROSE COMPLEX 100 MG in SODIUM CHLORIDE 0.9% IV 50 ML 220 MG IVPB (08:39)
[2020-04-26] MEDS: CHOLECALCIFEROL 1,000 UNITS TABLET 2000 UNITS PO (08:39)
[2020-04-26] MEDS: ISOSORBIDE DINITRATE 5 MG TABLET PO ×2 (08:39→18:08)
[2020-04-26] MEDS: EUCERIN CREAM 120 GM JAR 1 APPLIC TOPICAL ×2 (08:41→16:16)
--- NOTE | 2020-04-26 12:07 | PCNSR ---
On 04/26/20, the student, Yanelis Fields, provided care and completed [facility] documentation on this patient. I have reviewed the student's documentation and agree with the findings.
[2020-04-26] MEDS: metOLazone 5 MG TABLET PO (12:49)
[2020-04-26] MEDS: carvediloL 12.5 MG TABLET PO ×2 (12:49→20:10)
--- NOTE | 2020-04-26 13:16 | PM.IMPN ---
Progress Note: A&P Assessment and Plan (1) CHF (congestive heart failure): Qualifiers: Heart failure chronicity: unspecified Heart failure type: unspecified Qualified Code(s): I50.9 - Heart failure, unspecified Code(s): I50.9 - Heart failure, unspecified Status: Acute Assessment and Plan: Patient with massive bilateral lower extremity edema with scrotal edema. Recent Echo showing EF 45-50% but right sided pressures poorly evaluated. [place] CHF related; consider right-sided failure as well. Chest x-ray showing interstitial fibrosis but [place] [address]. Dopplers negative for DVT. Cardiac ischemia seems less likely given the recent normal stress test. UA showing no proteinuria making nephrotic syndrome unlikely. UOP 2200 (-475) yesterday on Lasix 40mg IV BID with the addition of metolazone. Monitor renal function closely. Discussed with Cardiology and appreciate their input. (2) RENATO (acute kidney injury): Code(s): N17.9 - Acute kidney failure, unspecified Status: Acute Assessment and Plan: Baseline creatinine 1.3. Creatinine worse this admission at 1.9. Renal US showing medical renal disease with bilateral renal atrophy. UA showing 2+ blood and 2+ LE and 10-15WBC. UCx negative. Workup started. Cr better at 1.8 today. Monitor renal function closely on diuretic therapy. (3) Hyperkalemia: Code(s): E87.5 - Hyperkalemia Status: Acute Assessment and Plan: Potassium elevated at 5.2. Repeat levels normal now. TSH and cortisol levels okay. Continue to follow. (4) Ventricular tachycardia (paroxysmal): Code(s): I47.2 - Ventricular tachycardia Status: Acute Assessment and Plan: EKG and tele noted with frequent runs of PVCs/NSVT/bigeminy. Coreg has been resumed and dose increased. Amiodarone started. Could be related to his hyperkalemia. Mag replaced. Mag 2.1 and K+ 4.7 today. Cardiology following. Continue tele. (5) Elevated troponin: Code(s): R77.8 - Other specified abnormalities of plasma proteins Status: Acute Assessment and Plan: Troponins are elevated but flat at 0.069. EKG noted - as above. [place] Type II MD from demand ischemia from the CHF and/or from his RENATO/CKD. (6) Anemia: Qualifiers: Anemia type: iron deficiency Iron deficiency anemia type: unspecified iron deficiency Qualified Code(s): D50.9 - Iron deficiency anemia, unspecified Code(s): D64.9 - Anemia, unspecified Status: Acute Assessment and Plan: Hgb 8.7 on admission and stable from last admission in [place]. On chart review, do not see iron studies, etc. Immature retic fraction high but absolute retic low to suggest BM involvement. Iron deficiency by labs so started on IV iron. Stool guaiac ordered. Repeat Hgb stable. Follow (7) Ulcers of both lower legs: Code(s): L97.919 - Non-pressure chronic ulcer of unspecified part of right lower leg with unspecified severity; L97.929 - Non-pressure chronic ulcer of unspecified part of left lower leg with unspecified severity Status: Acute Assessment and Plan: Multiple LE ulcers related to the edema with weeping. 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 investment fund manager following. Continue dressing changes. Improve edema. (8) CKD (chronic kidney disease): Code(s): N18.9 - Chronic kidney disease, unspecified Status: Acute Assessment and Plan: Baseline Cr 1.3. Here, Cr higher at 1.9. As above. (9) Pulmonary fibrosis: Code(s): J84.10 - Pulmonary fibrosis, unspecified Status: Acute Assessment and Plan: Chronic pulmonary fibrosis. Related to work exposure? Not on O2. Unclear if he has had a workup for this. Follow (10) Hypertension: Code(s): I10 - Essential (primary) hypertension Status: Acute Assessment and Plan: BP reviewed
[2020-04-26] MEDS: SILVERGEL (ELTA) 45 ML 1 APPLIC TOPICAL (14:40)
--- NOTE | 2020-04-26 16:07 | PM.PNCARD ---
Progress Note: A&P Assessment and Plan (1) Acute on chronic combined systolic and diastolic CHF (congestive heart failure): Code(s): I50.43 - Acute on chronic combined systolic (congestive) and diastolic (congestive) heart failure Status: Acute Assessment and Plan: Severe lower extremity and scrotal edema secondary to CHF, R>L sided. Cardiomyopathy with EF 38% by Lexiscan, 45-50% by echo. Does not appear to have nephrotic syndrome. Patient has underlying sleep apnea on apneaLink and interstitial fibrosis which is aggravating his cardiac situation. Pulmonary pressure cannot be estimated on the last echo however. Cont. furosemide 40 mg IV push b.i.d.. Slowly diuresing. Continue carvedilol, and hydralazine/nitrates as blood pressure tolerates. Continue accurate input and output, daily weight. Low-sodium intake. (2) Acute on chronic right heart failure: Code(s): I50.813 - Acute on chronic right heart failure Status: Acute Assessment and Plan: Possibly aggravated by interstitial lung disease and sleep apnea. (3) Ventricular tachycardia (paroxysmal): Code(s): I47.2 - Ventricular tachycardia Status: Acute Assessment and Plan: Asymptomatic but frequent PVCs and complex ectopy such as ventricular triplets and runs of nonsustained ventricular tachycardia. Was doing much better earlier today worse while taking a nap. No evidence of acute ischemia, neg Sera 03/2020. Continue carvedilol 12.5 mg BID and keep potassium and magnesium in the high normal range. Daily BMP. So far asymptomatic; continue close observation. If refractory and/or tachy-clarissa transfer for electrophysiology consultation may be necessary. Keep on telemetry. Resting bradycardia limits aggressive up titration of AV sen blocking agents at this time. (4) Acute on chronic renal failure: Code(s): N17.9 - Acute kidney failure, unspecified; N18.9 - Chronic kidney disease, unspecified Status: Acute Assessment and Plan: Acute on chronic kidney disease, renal function stable with diuresis. Daily BMPs (5) CAD (coronary artery disease): Code(s): I25.10 - Atherosclerotic heart disease of [place] coronary artery without angina pectoris Status: Acute Assessment and Plan: History of RCA stent in 2012, prior Left anterior descending stent. No chest discomfort. Very slight elevation of troponin with a flat curve, doubt ACS. Continue supportive care medical therapy with ASA, beta-rosa, statin. (6) CANDELARIO (obstructive sleep apnea): Code(s): G47.33 - Obstructive sleep apnea (adult) (pediatric) Status: Inactive Assessment and Plan: Untreated. Apnea link with AHI 7. Will see respiratory therapy can set up for CPAP and to observe reduction ventricular ectopy overnight. Subjective Date/time seen: Date of service: 04/26/20 16:07 Interval history: Follow-up for acute on chronic systolic and diastolic CHF, right-sided greater than left-sided with severe lower extremity edema. EF 38% by Lexiscan, 45-50% by echo 2020. PVCs and nonsustained V-tach. Acute on chronic renal failure, history of CAD and CANDELARIO not on CPAP. Patient states he is feeling okay. Denies significant shortness of breath at rest. No chest pain. Edema persists. Short of breath bending over or walking. No palpitations. Patient was doing very well this morning with no significant nonsustained VT however this afternoon beginning after 2:00 p.m. apparently while patient was taking naps frequent PVCs and runs of nonsustained VT noted. Apnea link overnight AHI 7. Review of Systems Constitu
[2020-04-26] MEDS: rOPINIRole HCL 0.5 MG TABLET PO (20:11)
[2020-04-26] MEDS: MIRTAZAPINE 30 MG TABLET PO (20:11)
[2020-04-27] VITALS (18 sets, daily range): BP systolic 96–118; BP diastolic 39–69; PULSE 44–65; RESP 16–20; TEMP 36.4–36.8; O2SAT 90–99
[2020-04-27 01:33] LABS: IFOB Positive Control Positive; Immunochemical Fecal Occult Bl Negative (N)
[2020-04-27 05:24] LABS: Hematocrit 26.5 % (42.0-52.0); Hemoglobin 8.5 g/dL (14.0-18.0); Mean Corpuscular HGB Conc 32.1 g/dl (32-36); Mean Corpuscular Hemoglobin 30.9 pg (26-34); Mean Corpuscular Volume 96.4 fl (80-100); Mean Platelet Volume 10.9 fl (7.4-10.4); Platelet Count Result 268 k/mm3 (150-375); Red Blood Count 2.75 M/mm3 (4.6-6.20); Red Cell Distribution Width 15.5 % (11.5-14.5); White Blood Count 8.5 K/mm3 (4.5-10.0)
[2020-04-27] MEDS: HYDROcodone/acetaminophen (*CRX) 10-325 MG TABLET 1 TAB PO ×4 (05:24→23:25)
[2020-04-27 05:44] LABS: Albumin Level 3.1 g/dL (3.5-5.1); Anion Gap 8 mmol/L (8-16); Blood Urea Nitrogen 60 mg/dL (9-20); Carbon Dioxide 25 mmol/L (22-30); Chloride 99 mmol/L (98-107); Estimated CRCL calculation 28 ml/min; Estimated Glomerular Filt Rate 32; Glucose 123 mg/dL (75-110); Magnesium 2.1 mg/dL (1.6-2.3); Phosphorus 5.3 mg/dL (2.5-4.5); Potassium 4.4 mmol/L (3.4-5.0); Sodium 132 mmol/L (137-145)
[2020-04-27] MEDS: CHOLECALCIFEROL 1,000 UNITS TABLET 2000 UNITS PO (08:14)
[2020-04-27] MEDS: metOLazone 5 MG TABLET PO (08:14)
[2020-04-27] MEDS: MULTIVITAMINS /C LUTEIN (CENTRUM SILVER) TABLET *BKC 1 TAB PO (08:14)
[2020-04-27] MEDS: hydrALAZINE 10 MG TABLET PO ×2 (08:14→13:41)
[2020-04-27] MEDS: FUROSEMIDE INJ 40 MG/4 ML VIAL IV PUSH ×2 (08:14→20:19)
[2020-04-27] MEDS: GABAPENTIN 300 MG CAPSULE PO (08:14)
[2020-04-27] MEDS: AMIODARONE HCL 200 MG TABLET 400 MG PO ×2 (08:14→18:36)
[2020-04-27] MEDS: EUCERIN CREAM 120 GM JAR 1 APPLIC TOPICAL ×2 (08:15→17:14)
[2020-04-27] MEDS: carvediloL 12.5 MG TABLET PO ×2 (08:15→20:18)
[2020-04-27] MEDS: ISOSORBIDE DINITRATE 5 MG TABLET PO ×2 (08:15→17:12)
[2020-04-27] MEDS: ATORVASTATIN 10 MG TABLET PO (08:15)
[2020-04-27] MEDS: ASPIRIN 81 MG ENTERIC TABLET PO (08:15)
[2020-04-27] MEDS: polyethylene glycoL 3350 17 GM POWD.PACK PO (08:16)
[2020-04-27] MEDS: SILVERGEL (ELTA) 45 ML 1 APPLIC TOPICAL (08:16)
[2020-04-27] MEDS: IRON SUCROSE COMPLEX 100 MG in SODIUM CHLORIDE 0.9% IV 50 ML 220 MG IVPB (08:23)
--- NOTE | 2020-04-27 13:06 | PM.IMPN ---
Progress Note: A&P Assessment and Plan (1) CHF (congestive heart failure): Qualifiers: Heart failure chronicity: unspecified Heart failure type: unspecified Qualified Code(s): I50.9 - Heart failure, unspecified Code(s): I50.9 - Heart failure, unspecified Status: Acute Assessment and Plan: Patient with massive bilateral lower extremity edema with scrotal edema. Recent Echo showing EF 45-50%. [place] CHF related; consider right-sided failure as well. Chest x-ray showing interstitial fibrosis but cannot exclude pulmonary edema. BNP elevated but this could be from right heart failure as well. Cardiac ischemia seems less likely given the recent normal stress test. Consider also nephrotic syndrome although this is probably less likely. Will continue IV diuretics. Monitor renal function closely. Start Anatoliy hose when able. Check urinalysis. Check LFTs. Cardiology consult has obtained. Daily weights. Dietary consult. Check dopplers Dopplers negative for DVT. As above noted. Will continue to diurese. And monitor electrolytes. If stays okay possible discharge tomorrow morning (2) RENATO (acute kidney injury): Code(s): N17.9 - Acute kidney failure, unspecified Status: Acute Assessment and Plan: Baseline creatinine 1.3. Creatinine worse this admission at 1.9. Probably related to diuretics but consider urine retention give his hx and that he has elevated PSA and BPH. Check renal US. Renal US showing medical renal disease with bilateral renal atrophy. UA showing 2+ blood and 2+ LE and 10-15WBC. UTI? Check urine eos. Will monitor urine culture. Renal insufficiency is chronic. Will continue diuresis. (3) Hyperkalemia: Code(s): E87.5 - Hyperkalemia Status: Acute Assessment and Plan: Potassium elevated at last discharge and about the same here. Will repeat labs today. Check TSH and cortisol. Consider Kayexalate. Repeat potasium better. Follow. (4) Ventricular tachycardia (paroxysmal): Code(s): I47.2 - Ventricular tachycardia Status: Acute Assessment and Plan: EKG and tele noted with brief runs of PVCs/NSVT. Coreg has been resumed. Could be related to his hyperkalemia. Check Mag level. Cardiology consulted. Medications are adjusted and patient is asymptomatic at present. (5) Elevated troponin: Code(s): R77.8 - Other specified abnormalities of plasma proteins Status: Acute Assessment and Plan: Troponins are elevated but flat. EKG noted - as above. [place] Type II CT from demand ischemia from the CHF and/or from his RENATO/CKD. (6) Anemia: Qualifiers: Anemia type: iron deficiency Iron deficiency anemia type: unspecified iron deficiency Qualified Code(s): D50.9 - Iron deficiency anemia, unspecified Code(s): D64.9 - Anemia, unspecified Status: Acute Assessment and Plan: Hgb stable from last admission in [place]. On chart review, do not see iron studies, etc. Will check stool guaiac and check baseline labs. Monitor HH closely. Immature retic fraction high but absolute retic low to suggest BM involvement. Iron deficiency by labs. I did replace. (7) Ulcers of both lower legs: Code(s): L97.919 - Non-pressure chronic ulcer of unspecified part of right lower leg with unspecified severity; L97.929 - Non-pressure chronic ulcer of unspecified part of left lower leg with unspecified severity Status: Acute Assessment and Plan: Multiple LE ulcers related to the edema with weeping. 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 stakeholder manager consult. Dressing changes. Improve edema. (8) CKD (chronic kidney disease): Code(s): N18.9 - Chronic kidney disease, unspecified Status: Acute Assessment and Plan: Baseline Cr 1.3. Here, Cr higher at 1.9. As above. (9) Pulmonary fibrosis: Code(s): J84.10 - Pulmonary fibrosis, unspecified
--- NOTE | 2020-04-27 14:00 | PM.PNCARD ---
Progress Note: A&P Assessment and Plan (1) Acute on chronic combined systolic and diastolic CHF (congestive heart failure): Code(s): I50.43 - Acute on chronic combined systolic (congestive) and diastolic (congestive) heart failure Status: Acute Assessment and Plan: Severe lower extremity and scrotal edema secondary to CHF, R>L sided. Cardiomyopathy with EF 38% by Lexiscan, 45-50% by echo. Does not appear to have nephrotic syndrome. Patient has underlying sleep apnea on apneaLink and interstitial fibrosis which is aggravating his cardiac situation. Pulmonary pressure cannot be estimated on the last echo however. Unfortunately, patient refuses to wear CPAP stating he cannot tolerate it. Cont. furosemide 40 mg IV push b.i.d.. Slowly diuresing. -1115cc overnight. Continue carvedilol, and hydralazine/nitrates as blood pressure tolerates. Continue accurate input and output, daily weight. Low-sodium intake. (2) Tachycardia-bradycardia: Code(s): I49.5 - Sick sinus syndrome Status: Acute Assessment and Plan: patient significantly bradycardic on current regimen although with ongoing episodes of nonsustained VT. Further medical management at this institution limited. May need toreduce carvedilol to 6.25 mg twice daily and observe tolerance if persistent bradycardia and or pauses noted. Monitor electrolytes potassium and magnesium. If symptomatic tachy and/or Levar pacing may require pacemaker implantation and/or referral to electrophysiology for catheter based management strategies. If unstable during this hospitalization may require transfer to outside facility for electrophysiological evaluation. Discussed the dangers in this regard with the patient. Unclear much he fully comprehends. (3) Ventricular tachycardia (paroxysmal): Code(s): I47.2 - Ventricular tachycardia Status: Acute Assessment and Plan: Asymptomatic but frequent PVCs and complex ectopy such as ventricular triplets and runs of nonsustained ventricular tachycardia. This is an ongoing problem. No evidence of acute ischemia, neg Sera 03/2020. Unfortunately, may need to reduce carvedilol to 6.25 mg twice daily given bradycardia if persistent and are with prolonged pauses.and keep potassium and magnesium in the high normal range. Daily BMP. thus far patient is hemodynamically stable in this regard. So far asymptomatic; continue close observation. Keep on telemetry. Resting bradycardia limits aggressive up titration of AV sen blocking agents at this time. (4) Acute on chronic renal failure: Code(s): N17.9 - Acute kidney failure, unspecified; N18.9 - Chronic kidney disease, unspecified Status: Acute Assessment and Plan: Acute on chronic kidney disease, renal function stable with diuresis. Renal function stable, no improvement. Daily BMPs (5) CAD (coronary artery disease): Code(s): I25.10 - Atherosclerotic heart disease of [place] coronary artery without angina pectoris Status: Acute Assessment and Plan: History of RCA stent in 2012, prior Left anterior descending stent. No chest discomfort. Very slight elevation of troponin with a flat curve, doubt ACS. Continue supportive care medical therapy with ASA, beta-rosa, statin. (6) CANDELARIO (obstructive sleep apnea): Code(s): G47.33 - Obstructive sleep apnea (adult) (pediatric) Status: Inactive Assessment and Plan: Untreated. Apnea link with AHI 7. as above. Subjective Date/time seen: date of service:04/27/20 14:00 Interval history: Follow-up for acute on chronic systolic and diastolic CHF, right-sided greater than left-
[2020-04-27] MEDS: HEPARIN SODIUM 5,000 UNITS/ML VIAL 5000 UNITS SUB-Q ×2 (17:11→20:19)
[2020-04-27] MEDS: MELATONIN 5 MG TABLET 10 MG PO (20:18)
[2020-04-27] MEDS: rOPINIRole HCL 0.5 MG TABLET PO (20:18)
[2020-04-27] MEDS: MIRTAZAPINE 30 MG TABLET PO (20:18)
[2020-04-28] VITALS (17 sets, daily range): BP systolic 85–151; BP diastolic 44–65; PULSE 34–68; RESP 16–22; TEMP 35.7–36.6; O2SAT 92–100
[2020-04-28] MEDS: HYDROcodone/acetaminophen (*CRX) 10-325 MG TABLET 1 TAB PO ×4 (03:47→23:26)
[2020-04-28] MEDS: GABAPENTIN 300 MG CAPSULE PO (08:46)
[2020-04-28] MEDS: CHOLECALCIFEROL 1,000 UNITS TABLET 2000 UNITS PO (08:46)
[2020-04-28] MEDS: ISOSORBIDE DINITRATE 5 MG TABLET PO (08:46)
[2020-04-28] MEDS: MULTIVITAMINS /C LUTEIN (CENTRUM SILVER) TABLET *BKC 1 TAB PO (08:46)
[2020-04-28] MEDS: ATORVASTATIN 10 MG TABLET PO (08:47)
[2020-04-28] MEDS: ASPIRIN 81 MG ENTERIC TABLET PO (08:47)
[2020-04-28] MEDS: AMIODARONE HCL 200 MG TABLET 400 MG PO (08:47)
[2020-04-28] MEDS: SILVERGEL (ELTA) 45 ML 1 APPLIC TOPICAL (08:48)
[2020-04-28] MEDS: EUCERIN CREAM 120 GM JAR 1 APPLIC TOPICAL ×2 (08:48→18:19)
[2020-04-28] MEDS: polyethylene glycoL 3350 17 GM POWD.PACK PO (08:48)
[2020-04-28] MEDS: MULTIVIT W/ IRON, MINERALS 15 ML LIQUID (*BKC) PO (08:48)
[2020-04-28 08:54] LABS: Hematocrit 28.8 % (42.0-52.0); Hemoglobin 9.3 g/dL (14.0-18.0); Mean Corpuscular HGB Conc 32.3 g/dl (32-36); Mean Corpuscular Hemoglobin 31.6 pg (26-34); Mean Platelet Volume 10.9 fl (7.4-10.4); Platelet Count Result 284 k/mm3 (150-375); Red Blood Count 2.94 M/mm3 (4.6-6.20); Red Cell Distribution Width 15.8 % (11.5-14.5); White Blood Count 8.2 K/mm3 (4.5-10.0)
[2020-04-28 09:06] LABS: Anion Gap 9 mmol/L (8-16); Blood Urea Nitrogen 63 mg/dL (9-20); Calcium 8.2 mg/dL (8.4-10.2); Carbon Dioxide 24 mmol/L (22-30); Chloride 95 mmol/L (98-107); Estimated CRCL calculation 23 ml/min; Estimated Glomerular Filt Rate 26; Glucose 167 mg/dL (75-110); Magnesium 2.1 mg/dL (1.6-2.3); Potassium 4.6 mmol/L (3.4-5.0); Sodium 128 mmol/L (137-145)
[2020-04-28] MEDS: carvediloL 12.5 MG TABLET PO (09:27)
[2020-04-28] MEDS: IRON SUCROSE COMPLEX 100 MG in SODIUM CHLORIDE 0.9% IV 50 ML 220 MG IVPB (09:28)
--- NOTE | 2020-04-28 10:59 | PM.IMPN ---
Progress Note: A&P Assessment and Plan (1) CHF (congestive heart failure): Qualifiers: Heart failure chronicity: unspecified Heart failure type: unspecified Qualified Code(s): I50.9 - Heart failure, unspecified Code(s): I50.9 - Heart failure, unspecified Status: Acute Assessment and Plan: Patient with massive bilateral lower extremity edema with scrotal edema. Recent Echo showing EF 45-50%. [place] CHF related; consider right-sided failure as well. Chest x-ray showing interstitial fibrosis but cannot exclude pulmonary edema. BNP elevated but this could be from right heart failure as well. Cardiac ischemia seems less likely given the recent normal stress test. Consider also nephrotic syndrome although this is probably less likely. Will continue IV diuretics. Monitor renal function closely. Start Anatoliy hose when able. Check urinalysis. Check LFTs. Cardiology consult has obtained. Daily weights. Dietary consult. Check dopplers Dopplers negative for DVT. As above noted. Will continue to diurese. And monitor electrolytes. If stays okay possible discharge tomorrow morning (2) RENATO (acute kidney injury): Code(s): N17.9 - Acute kidney failure, unspecified Status: Acute Assessment and Plan: Baseline creatinine 1.3. Creatinine worse this admission at 1.9. Probably related to diuretics but consider urine retention give his hx and that he has elevated PSA and BPH. Check renal US. Renal US showing medical renal disease with bilateral renal atrophy. UA showing 2+ blood and 2+ LE and 10-15WBC. UTI? Check urine eos. Will monitor urine culture. Renal insufficiency is chronic. Will continue diuresis. Will get nephrology evaluation is creatinine is getting worse. (3) Hyperkalemia: Code(s): E87.5 - Hyperkalemia Status: Acute Assessment and Plan: Potassium is normal. (4) Ventricular tachycardia (paroxysmal): Code(s): I47.2 - Ventricular tachycardia Status: Acute Assessment and Plan: Mag level is 2.1. Cardiology consulted. Medications are adjusted and patient is asymptomatic at present. (5) Elevated troponin: Code(s): R77.8 - Other specified abnormalities of plasma proteins Status: Acute Assessment and Plan: Troponins are elevated but flat. EKG noted - as above. [place] Type II CO from demand ischemia from the CHF and/or from his RENATO/CKD. (6) Anemia: Qualifiers: Anemia type: iron deficiency Iron deficiency anemia type: unspecified iron deficiency Qualified Code(s): D50.9 - Iron deficiency anemia, unspecified Code(s): D64.9 - Anemia, unspecified Status: Acute Assessment and Plan: Hgb stable from last admission in [place]. On chart review, do not see iron studies, etc. Will check stool guaiac and check baseline labs. Monitor HH closely. Immature retic fraction high but absolute retic low to suggest BM involvement. Iron deficiency by labs. I did replace. (7) Ulcers of both lower legs: Code(s): L97.919 - Non-pressure chronic ulcer of unspecified part of right lower leg with unspecified severity; L97.929 - Non-pressure chronic ulcer of unspecified part of left lower leg with unspecified severity Status: Acute Assessment and Plan: Multiple LE ulcers related to the edema with weeping. 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 Dressing changes. Improve edema. (8) CKD (chronic kidney disease): Code(s): N18.9 - Chronic kidney disease, unspecified Status: Acute Assessment and Plan: Baseline Cr 1.3. Here, Cr higher at 1.9. As above. (9) Pulmonary fibrosis: Code(s): J84.10 - Pulmonary fibrosis, unspecified Status: Acute Assessment and Plan: Chronic pulmonary fibrosis. Related to work exposure? Not on O2. Unclear if he has had a workup for this. Follow (10) Hypertension: Code(s)
[2020-04-28] MEDS: SODIUM CHLORIDE 0.9% IV 250 ML 999 ML IV CONT (11:18)
--- NOTE | 2020-04-28 13:11 | PM.PNCARD ---
Progress Note: A&P Assessment and Plan (1) Acute on chronic combined systolic and diastolic CHF (congestive heart failure): Code(s): I50.43 - Acute on chronic combined systolic (congestive) and diastolic (congestive) heart failure Status: Acute Assessment and Plan: Severe lower extremity and scrotal edema secondary to CHF, R>L sided. Cardiomyopathy with EF 38% by Lexiscan, 45-50% by echo. Does not appear to have nephrotic syndrome. Patient has underlying sleep apnea on apneaLink and interstitial fibrosis which is aggravating his cardiac situation. Pulmonary pressure cannot be estimated on the last echo however. Unfortunately, patient refuses to wear CPAP stating he cannot tolerate it. Continue accurate input and output, daily weight. Low-sodium intake. Will need to discontinue isosorbide, carvedilol, and hold diuretics until BP stabilizes. Monitor renal function very closely. Risk of worsening heart failure symptoms discussed at length. (2) Tachycardia-bradycardia: Code(s): I49.5 - Sick sinus syndrome Status: Acute Assessment and Plan: Patient with worsening symptomatic bradycardia with associated hypotension. BP improved with 500 mL normal saline bolus. Heart rate sinus bradycardia mid to low 30s intermittent junctional escape no high-grade AV block or complete heart block noted. Patient with recurrent nonsustained VT early this morning and overnight once again. Discussed pacemaker, electrophysiology consultation at outside hospital requiring transfer. Considering patient's advanced age, comorbidities, DNR status try to avoid device or invasive procedures if possible. Discussed with Dr. Morgan at [facility] () as well. If pt stable he was comfortable with NSVT with follow up as outpatient NADIA with him or transfer if necessary. Given bradycardia will discontinue carvedilol and may need to hold amiodarone this evening if remains persistently bradycardia and or hypotensive. May add mexiletine if nonsustained VT becomes a greater problem. Discussed the high risk nature of this issue with regards to fall risk, life-threatening VT/VF risk although EF greater than 35%. Unclear if Levar and tachyarrhythmia ischemic driven although outside stress test without ischemia recently. Patient is not a candidate for invasive angiography given worsening renal failure, advanced age and DNR status without serious complication risk. Prognosis is quite guarded. I have spent 85 minutes in the care of this patient today including bedside evaluation, discussion with physician colleagues, and chart review. (3) Ventricular tachycardia (paroxysmal): Code(s): I47.2 - Ventricular tachycardia Status: Acute Assessment and Plan: Asymptomatic but frequent PVCs and complex ectopy such as ventricular triplets and runs of nonsustained ventricular tachycardia. This is an ongoing problem. No evidence of acute ischemia, neg Sera 03/2020. Expect he may have more nonsustained VT with discontinuation of beta-rosa therapy especially if amiodarone needs to be held due to symptomatic bradycardia. Continue telemetry. Resting bradycardia limits aggressive up titration of AV sen blocking agents at this time. (4) Acute on chronic renal failure: Code(s): N17.9 - Acute kidney failure, unspecified; N18.9 - Chronic kidney disease, unspecified Status: Acute Assessment and Plan: Acute on chronic kidney disease, renal function were states a.m.. Discontinue hydralazine, hold diuretic. Nephrology consultation. Daily BMPs (5) CAD (coronary artery disease): Code(s): I25.10 - Atherosclerotic heart disease of [place] coronary artery without angina pectoris Status: Acute Assessment and Plan: History of RCA stent in 2012, prior Left anterior descending stent. No anginal symptoms repo
[2020-04-28 13:53] LABS: Complement Total CH50 >60 U/mL (31-60)
[2020-04-28] MEDS: HEPARIN SODIUM 5,000 UNITS/ML VIAL 5000 UNITS SUB-Q ×2 (14:28→21:09)
--- NOTE | 2020-04-28 16:28 | PM.CNNEP ---
Assessment and Plan Assessment and plan (1) RENATO (acute kidney injury): Code(s): N17.9 - Acute kidney failure, unspecified Status: Acute Assessment and Plan: presumably due to necessity of diuretic therapy however cannot deny a component of disease progression recurrent hospitalizations with need for IV diuretics also playing a role as well renal ultrasound with findings c/w with CKD (bilateral renal atrophy and medical renal disease) serological evaluation negative to date (some tests still pending) follow trend of creatinine (2) Stage 3a chronic kidney disease: Code(s): N18.31 - Chronic kidney disease, stage 3a Status: Chronic Assessment and Plan: preumably due to HTN, vascular disease, age-related change creatinine was 1.3 about a year ago -- current creatinine on admission could be his new baseline (3) Acute on chronic combined systolic and diastolic CHF (congestive heart failure): Code(s): I50.43 - Acute on chronic combined systolic (congestive) and diastolic (congestive) heart failure Status: Acute Assessment and Plan: suspect for left sided than right (worsened by his CANDELARIO and noncompliance with CPAP) interstitial lung disease + probable pulmonary HTN playing a role as well Cardiology following difficult to treat/stabilize as noted by his frequent hospitalizations in the last couple of month (4) Anasarca: Code(s): R60.1 - Generalized edema Status: Acute Assessment and Plan: due to right sided heart failure diuretics to help but doing so at the expense of renal function follow I/Os and daily weight (5) Hypotension: Code(s): I95.9 - Hypotension, unspecified Status: Acute Assessment and Plan: BP medications on hold this is not likely helping renal function either follow hemodynamics Difficult to situation to optimize given his multitude of issues/problems at this time Will continue to follow. History of Present Illness Reason for Consult Consult date: 04/28/20 Reason for consult: acute renal failure (on chronic kidney disease) Chief Complaint Chief complaint: chf, anemia, renato, pvc History of Present Illness Narrative: The patient is an 85-year-old male with a past medical history as outlined below who presented to [facility] Emergency room with complaints of increasing shortness of breath associated with scrotal and lower extremity edema. From review of the records as well as discussion with the patient, the patient appears to have been hospitalized with this same issue on at least 2 separate occasions earlier this month. Both of these hospitalizations apparently occurred at [facility]. Each time it would appear he is aggressively diuresed and treated with other medical problems the same time with subsequent discharged home only to return to the hospital with similar symptoms resulting in the same intervention prior to discharge. On his most recent discharge from [facility], he states that he has noticed increasing edema as well as scrotal edema at least 2 or 3 days after discharge. because of the turn of the symptoms he presented to [facility] ER for further evaluation. Workup and evaluation emergency room demonstrated chest x-ray findings of chronic interstitial lung disease but unable to exclude pulmonary edema. He was relatively anemic with a hemoglobin of 8.7 and his potassium was mildly elevated 5.2. His BUN and creatinine were also somewhat higher than baseline as well (BUN 68 and creatinine 1.9 with a creatinine of around 1.3 about a year ago). BNP was quite elevated as well. It was felt that his edema both in his lower extremities and scrotal area were manifestation of a CHF exacerbation and Cardiology was consulted with subsequent admission to the hospital for diuresis as well as further therapy. Since his admission, he has been aggressively diuresed on
[2020-04-28 19:59] LABS: Hepatitis B Core Ab Total Nonreactive (Nonreactive)
--- NOTE | 2020-04-28 20:02 | PC.NURSE ---
Pt gave ok to talk to Angy Ramirez daughter n . [facility] at [phone].
[2020-04-28] MEDS: MELATONIN 5 MG TABLET 10 MG PO (21:09)
[2020-04-28] MEDS: MIRTAZAPINE 30 MG TABLET PO (21:09)
[2020-04-28] MEDS: rOPINIRole HCL 0.5 MG TABLET PO (21:09)
[2020-04-29] VITALS (12 sets, daily range): BP systolic 111–151; BP diastolic 58–93; PULSE 47–75; RESP 16–20; TEMP 35.9–36.6; O2SAT 95–100
[2020-04-29] MEDS: HYDROcodone/acetaminophen (*CRX) 10-325 MG TABLET 1 TAB PO ×3 (03:35→18:50)
[2020-04-29 05:18] LABS: Anion Gap 10 mmol/L (8-16); Blood Urea Nitrogen 65 mg/dL (9-20); Carbon Dioxide 24 mmol/L (22-30); Chloride 94 mmol/L (98-107); Estimated CRCL calculation 23 ml/min; Estimated Glomerular Filt Rate 26; Glucose 111 mg/dL (75-110); Magnesium 2.1 mg/dL (1.6-2.3); Potassium 4.8 mmol/L (3.4-5.0); Sodium 128 mmol/L (137-145)
[2020-04-29] MEDS: HEPARIN SODIUM 5,000 UNITS/ML VIAL 5000 UNITS SUB-Q ×3 (06:25→20:45)
[2020-04-29] MEDS: ASPIRIN 81 MG ENTERIC TABLET PO (09:40)
[2020-04-29] MEDS: CHOLECALCIFEROL 1,000 UNITS TABLET 2000 UNITS PO (09:41)
[2020-04-29] MEDS: ATORVASTATIN 10 MG TABLET PO (09:42)
[2020-04-29] MEDS: AMIODARONE HCL 200 MG TABLET PO ×2 (09:42→17:10)
[2020-04-29] MEDS: MULTIVITAMINS /C LUTEIN (CENTRUM SILVER) TABLET *BKC 1 TAB PO (09:43)
[2020-04-29] MEDS: GABAPENTIN 300 MG CAPSULE PO (09:43)
[2020-04-29] MEDS: polyethylene glycoL 3350 17 GM POWD.PACK PO (09:44)
[2020-04-29] MEDS: SILVERGEL (ELTA) 45 ML 1 APPLIC TOPICAL (09:51)
[2020-04-29] MEDS: EUCERIN CREAM 120 GM JAR 1 APPLIC TOPICAL ×2 (09:51→17:08)
--- NOTE | 2020-04-29 10:59 | PCNWS ---
Weekly nutritional screen. Patient is tolerating current diet with adequate intake. Patient is consuming 100% of meals and enjoys the quality of the food. No weight loss reported. No nutritional needs at this time.
--- NOTE | 2020-04-29 11:16 | PCNSR ---
On 04/29/20, the student, Yanelis Fields, provided care and completed [facility] documentation on this patient. I have reviewed the student's documentation and agree with the findings.
--- NOTE | 2020-04-29 13:37 | PM.PNNEP ---
Progress Note: A&P Assessment and Plan (1) RENATO (acute kidney injury): Code(s): N17.9 - Acute kidney failure, unspecified Status: Acute Assessment and Plan: presumably due to necessity of diuretic therapy however cannot deny a component of disease progression recurrent hospitalizations with need for IV diuretics also playing a role as well renal ultrasound with findings c/w with CKD (bilateral renal atrophy and medical renal disease) serological evaluation negative to date (some tests still pending) follow trend of creatinine - mild improvement with holding diuretics surprising the UOP is stable if not better even though diuretics are on hold (2) Stage 3a chronic kidney disease: Code(s): N18.31 - Chronic kidney disease, stage 3a Status: Chronic Assessment and Plan: preumably due to HTN, vascular disease, age-related change creatinine was 1.3 about a year ago -- current creatinine on admission could be his new baseline (3) Acute on chronic combined systolic and diastolic CHF (congestive heart failure): Code(s): I50.43 - Acute on chronic combined systolic (congestive) and diastolic (congestive) heart failure Status: Acute Assessment and Plan: suspect for left sided than right (worsened by his CANDELARIO and noncompliance with CPAP) interstitial lung disease + probable pulmonary HTN playing a role as well Cardiology following difficult to treat/stabilize as noted by his frequent hospitalizations in the last couple of month (4) Anasarca: Code(s): R60.1 - Generalized edema Status: Acute Assessment and Plan: due to right sided heart failure diuretics to help but doing so at the expense of renal function follow I/Os and daily weight (5) Hypotension: Code(s): I95.9 - Hypotension, unspecified Status: Acute Assessment and Plan: BP medications on hold this is not likely helping renal function either follow hemodynamics Difficult to situation to optimize given his multitude of issues/problems at this time; his refusal to wear his CPAP is undoubtedly contributing to his edema/anasarca as well; this may be a situation where we have to accept a higher creatinine to achieve some degree of euvolemia although I suspect he will always have some degree of swelling/edema no matter what we do... Will continue to follow. Subjective Date/time seen: 04/29/20 13:37 Overall, he states he feels better -- still with significant edema and shortness of breath now only present with exertional activity; no other apparent complaints voiced at this time; no events/issues overnight or earlier this AM; BP seems to be doing better at this time Exam Narrative: Exam Narrative: General: WD/WN male in NAD Heart: normal S1 and S2; no rub Lungs: decreased at the bases Abdomen: soft, nontender, nondistended, positive bowel sounds Extremities: no cyanosis or clubbing; 2 - 3+ edema Skin: chronic venous stasis changes with dressings over wounds Objective Data Vital Signs Vital Signs: Vital Signs Temp Pulse Resp BP Pulse Ox 04/29/20 12:00 36.3 C L 62 18 111/93 H 99 04/29/20 10:00 56 L 04/29/20 08:00 36.2 C L 59 L 18 115/58 L 99 04/29/20 06:00 64 04/29/20 04:00 36.6 C 62 20 151/65 H 99 04/29/20 02:00 58 L 04/28/20 23:42 36.6 C 64 20 151/65 H 99 04/28/20 23:31 62 16 97 04/28/20 22:00 60 04/28/20 20:00 40 L 16 97 04/28/20 19:39 35.7 C L 58 L 16 112/52 L 97 Intake/Output Intake/Output: Intake & Output 04/26/20 04/27/20 04/28/20 04/29/20 23:59 23:59 23:59 23:59 Intake Total 1215 1275 2500 1020 Output Total 2250 1200 1200 2050 Balance -1035 75 1300 -1030 Meds/Results Medications: Active Medications Generic Name Dose Route Start Last Admin Trade Name Freq PRN Reason Stop Dose Admin Hydrocodone Bitart/Acetaminophen 1 tab 04/24/20 03:36 04/29/20 09:40 Hydrocodone
[2020-04-29 13:38] LABS: Anti Nuclear Antibody Titer 1:40 (Negative)
--- NOTE | 2020-04-29 15:29 | PM.IMPN ---
Progress Note: A&P Assessment and Plan (1) CHF (congestive heart failure): Qualifiers: Heart failure chronicity: unspecified Heart failure type: unspecified Qualified Code(s): I50.9 - Heart failure, unspecified Code(s): I50.9 - Heart failure, unspecified Status: Acute Assessment and Plan: Patient with massive bilateral lower extremity edema with scrotal edema. Recent Echo showing EF 45-50%. [place] CHF related; consider right-sided failure as well. Chest x-ray showing interstitial fibrosis but cannot exclude pulmonary edema. BNP elevated but this could be from right heart failure as well. Cardiac ischemia seems less likely given the recent normal stress test. Consider also nephrotic syndrome although this is probably less likely. Will continue IV diuretics. Monitor renal function closely. Start Anatoliy hose when able. Check urinalysis. Check LFTs. Cardiology consult has obtained. Daily weights. Dietary consult. Check dopplers Dopplers negative for DVT. As above noted. Lasix is on hold because of low blood pressure. Monitor electrolytes. (2) RENATO (acute kidney injury): Code(s): N17.9 - Acute kidney failure, unspecified Status: Acute Assessment and Plan: Baseline creatinine 1.3. Creatinine worse this admission at 1.9. Probably related to diuretics but consider urine retention give his hx and that he has elevated PSA and BPH. Check renal US. Renal US showing medical renal disease with bilateral renal atrophy. UA showing 2+ blood and 2+ LE and 10-15WBC. UTI? Check urine eos. Will monitor urine culture. Renal insufficiency is chronic. Nephrology consult noted. (3) Hyperkalemia: Code(s): E87.5 - Hyperkalemia Status: Acute Assessment and Plan: Potassium is normal. (4) Ventricular tachycardia (paroxysmal): Code(s): I47.2 - Ventricular tachycardia Status: Acute Assessment and Plan: Mag level is 2.1. Cardiology consulted. Medications are adjusted and patient is asymptomatic at present. Cardiology following. (5) Elevated troponin: Code(s): R77.8 - Other specified abnormalities of plasma proteins Status: Acute Assessment and Plan: Troponins are elevated but flat. EKG noted - as above. [place] Type II HI from demand ischemia from the CHF and/or from his RENATO/CKD. Cardiology following. (6) Anemia: Qualifiers: Anemia type: iron deficiency Iron deficiency anemia type: unspecified iron deficiency Qualified Code(s): D50.9 - Iron deficiency anemia, unspecified Code(s): D64.9 - Anemia, unspecified Status: Acute Assessment and Plan: Hgb stable from last admission in [place]. On chart review, do not see iron studies, etc. Will check stool guaiac and check baseline labs. Monitor HH closely. Immature retic fraction high but absolute retic low to suggest BM involvement. Iron deficiency by labs. I did replace. (7) Ulcers of both lower legs: Code(s): L97.919 - Non-pressure chronic ulcer of unspecified part of right lower leg with unspecified severity; L97.929 - Non-pressure chronic ulcer of unspecified part of left lower leg with unspecified severity Status: Acute Assessment and Plan: Multiple LE ulcers related to the edema with weeping. 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 Dressing changes. Improve edema. (8) CKD (chronic kidney disease): Code(s): N18.9 - Chronic kidney disease, unspecified Status: Acute Assessment and Plan: Baseline Cr 1.3. Here, Cr higher at 1.9. As above. (9) Pulmonary fibrosis: Code(s): J84.10 - Pulmonary fibrosis, unspecified Status: Acute Assessment and Plan: Chronic pulmonary fibrosis. Related to work exposure? Not on O2. Unclear if he has had a workup for this. Follow (10) Hypertension: Code(s): I10 - Essential (primary) hypertension
--- NOTE | 2020-04-29 17:51 | PM.PNCARD ---
Progress Note: A&P Assessment and Plan (1) Acute on chronic combined systolic and diastolic CHF (congestive heart failure): Code(s): I50.43 - Acute on chronic combined systolic (congestive) and diastolic (congestive) heart failure Status: Acute Assessment and Plan: Severe lower extremity and scrotal edema secondary to CHF, R>L sided. Cardiomyopathy with EF 38% by Lexiscan, 45-50% by echo. Does not appear to have nephrotic syndrome. Patient has underlying sleep apnea on apneaLink and interstitial fibrosis which is aggravating his cardiac situation. Pulmonary pressure cannot be estimated on the last echo however. Unfortunately, patient refuses to wear CPAP stating he cannot tolerate it. Continue accurate input and output, daily weight. Low-sodium intake. Will attempt to resume diuretics as tolerated based upon BP, renal function. Monitor renal function very closely. Risk of worsening heart failure symptoms discussed at length. Reassess volume status in a.m. with decisions based on renal function, symptoms and hemodynamics. I would consider additional workup for infiltrative process such as amyloidosis given his arrhythmias, renal failure, CHF but he cannot obtain an MRI due to renal failure and this evaluation is not available at this institution. Pyrophosphate scan a consideration but again not available at this institution. I expressed my concern regarding his lack of meaningful response to therapy provided thus far. (2) Tachycardia-bradycardia: Code(s): I49.5 - Sick sinus syndrome Status: Acute Assessment and Plan: Still with significant bradycardia but improved with heart rates generally in the 50s with discontinuation of carvedilol and reduction in amiodarone to 200 mg twice daily. Thankfully and surprisingly less frequent and shorter duration nonsustained VT overnight noted on telemetry. however, I am concerned this is a transient phenomenon and with reduction therapy may again become more evident. if so, he likely will will require electrophysiological evaluation, management possible pacemaker implantation as discussed previously. Thus far he is stabilizing and so will monitor overnight with recommendations to follow. We did discuss possible transfer to outside hospital in this regard. Patient remains at high risk for tachy-clarissa complications. Patient verbalized understanding regarding risks and my concerns with discharging him home given the tenuous nature of his dysrhythmias albeit relative stability which argues against need for acute transfer to an outside hospital. (3) Ventricular tachycardia (paroxysmal): Code(s): I47.2 - Ventricular tachycardia Status: Acute Assessment and Plan: Asymptomatic but frequent PVCs and complex ectopy such as ventricular triplets and runs of nonsustained ventricular tachycardia. This is an ongoing problem. No evidence of acute ischemia, neg Sera 03/2020. Continue telemetry. Resting bradycardia limits aggressive up titration of AV sen blocking agents at this time. As above. (4) Acute on chronic renal failure: Code(s): N17.9 - Acute kidney failure, unspecified; N18.9 - Chronic kidney disease, unspecified Status: Acute Assessment and Plan: Acute on chronic kidney disease, renal function were states a.m.. Discontinue hydralazine, hold diuretic. Nephrology consultation. Daily BMPs Renal function stable but not improving yet. Reassess in a.m. with BMP. (5) CAD (coronary artery disease): Code(s): I25.10 - Atherosclerotic heart disease of [place] coronary artery without angina pectoris Status: Acute Assessment and Plan: History of RCA stent in 2012, prior Left anterior descending stent. No anginal symptoms reported. Very slight elevation of troponin with a flat curve, doubt ACS. Ben
[2020-04-29] MEDS: MIRTAZAPINE 30 MG TABLET PO (20:45)
[2020-04-29] MEDS: rOPINIRole HCL 0.5 MG TABLET PO (20:45)
[2020-04-29 22:08] LABS: Albumin 2.9 g/dL (3.8-4.8); Alpha 1 Globulin 0.5 g/dL (0.2-0.3); Alpha 2 Globulin 0.9 g/dL (0.5-0.9); Beta 1 Globulin 0.5 g/dL (0.4-0.6); Gamma Globulin 0.7 g/dL (0.8-1.7); Protein, Total 5.8 g/dL (6.1-8.1)
[2020-04-30] VITALS (13 sets, daily range): BP systolic 119–160; BP diastolic 50–94; PULSE 54–85; RESP 16–22; TEMP 36.1–36.6; O2SAT 89–100
[2020-04-30] MEDS: HYDROcodone/acetaminophen (*CRX) 10-325 MG TABLET 1 TAB PO ×5 (01:12→21:48)
[2020-04-30] MEDS: HEPARIN SODIUM 5,000 UNITS/ML VIAL 5000 UNITS SUB-Q ×3 (05:58→21:01)
[2020-04-30 06:25] LABS: Anion Gap 8 mmol/L (8-16); Blood Urea Nitrogen 60 mg/dL (9-20); Carbon Dioxide 25 mmol/L (22-30); Chloride 96 mmol/L (98-107); Estimated CRCL calculation 28 ml/min; Estimated Glomerular Filt Rate 32; Glucose 141 mg/dL (75-110); Magnesium 2.1 mg/dL (1.6-2.3); Potassium 4.6 mmol/L (3.4-5.0); Sodium 129 mmol/L (137-145)
[2020-04-30] MEDS: ASPIRIN 81 MG ENTERIC TABLET PO (09:00)
[2020-04-30] MEDS: AMIODARONE HCL 200 MG TABLET PO ×2 (09:00→16:30)
[2020-04-30] MEDS: CHOLECALCIFEROL 1,000 UNITS TABLET 2000 UNITS PO (09:00)
[2020-04-30] MEDS: MULTIVIT W/ IRON, MINERALS 15 ML LIQUID (*BKC) PO (09:00)
[2020-04-30] MEDS: BETAMETHASONE/CLOTRIMAZOLE CR 15 GM TUBE 1 APPLIC TOPICAL ×2 (09:01→20:59)
[2020-04-30] MEDS: EUCERIN CREAM 120 GM JAR 1 APPLIC TOPICAL ×2 (09:01→16:31)
[2020-04-30] MEDS: ATORVASTATIN 10 MG TABLET PO (09:01)
[2020-04-30] MEDS: GABAPENTIN 300 MG CAPSULE PO (09:01)
[2020-04-30] MEDS: SILVERGEL (ELTA) 45 ML 1 APPLIC TOPICAL (09:02)
--- NOTE | 2020-04-30 10:11 | PM.IMPN ---
Progress Note: A&P Assessment and Plan (1) CHF (congestive heart failure): Qualifiers: Heart failure chronicity: unspecified Heart failure type: unspecified Qualified Code(s): I50.9 - Heart failure, unspecified Code(s): I50.9 - Heart failure, unspecified Status: Acute Assessment and Plan: Patient with massive bilateral lower extremity edema with scrotal edema. Recent Echo showing EF 45-50%. [place] CHF related; consider right-sided failure as well. Chest x-ray showing interstitial fibrosis but cannot exclude pulmonary edema. BNP elevated but this could be from right heart failure as well. Cardiac ischemia seems less likely given the recent normal stress test. Consider also nephrotic syndrome although this is probably less likely. Will continue IV diuretics. Monitor renal function closely. Start Anatoliy hose when able. Check urinalysis. Check LFTs. Cardiology consult has obtained. Daily weights. Dietary consult. Check dopplers Dopplers negative for DVT. As above noted. Will start low-dose Lasix and metolazone today. Patient blood pressure is better. (2) RENATO (acute kidney injury): Code(s): N17.9 - Acute kidney failure, unspecified Status: Acute Assessment and Plan: Baseline creatinine 1.3. Creatinine worse this admission at 1.9. Probably related to diuretics but consider urine retention give his hx and that he has elevated PSA and BPH. Check renal US. Renal US showing medical renal disease with bilateral renal atrophy. UA showing 2+ blood and 2+ LE and 10-15WBC. UTI? Check urine eos. Will monitor urine culture. Renal insufficiency is chronic. Nephrology consult noted. (3) Hyperkalemia: Code(s): E87.5 - Hyperkalemia Status: Acute Assessment and Plan: Potassium is normal. (4) Ventricular tachycardia (paroxysmal): Code(s): I47.2 - Ventricular tachycardia Status: Acute Assessment and Plan: Mag level is 2.1. Cardiology consulted. Medications are adjusted and patient is asymptomatic at present. Cardiology following. (5) Elevated troponin: Code(s): R77.8 - Other specified abnormalities of plasma proteins Status: Acute Assessment and Plan: Troponins are elevated but flat. EKG noted - as above. [place] Type II [place] from demand ischemia from the CHF and/or from his RENATO/CKD. Cardiology following. (6) Anemia: Qualifiers: Anemia type: iron deficiency Iron deficiency anemia type: unspecified iron deficiency Qualified Code(s): D50.9 - Iron deficiency anemia, unspecified Code(s): D64.9 - Anemia, unspecified Status: Acute Assessment and Plan: Hgb stable from last admission in [place]. On chart review, do not see iron studies, etc. Will check stool guaiac and check baseline labs. Monitor HH closely. Immature retic fraction high but absolute retic low to suggest BM involvement. Iron deficiency by labs. I did replace. (7) Ulcers of both lower legs: Code(s): L97.919 - Non-pressure chronic ulcer of unspecified part of right lower leg with unspecified severity; L97.929 - Non-pressure chronic ulcer of unspecified part of left lower leg with unspecified severity Status: Acute Assessment and Plan: Multiple LE ulcers related to the edema with weeping. 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 environmental research project manager consult. Dressing changes. Improve edema. (8) CKD (chronic kidney disease): Code(s): N18.9 - Chronic kidney disease, unspecified Status: Acute Assessment and Plan: Baseline Cr 1.3. Here, Cr higher at 1.9. As above. (9) Pulmonary fibrosis: Code(s): J84.10 - Pulmonary fibrosis, unspecified Status: Acute Assessment and Plan: Chronic pulmonary fibrosis. Related to work exposure? Not on O2. Unclear if he has had a workup for this. Follow (10) Hypertension: Code(s): I10 - Essential (primary) hyperten
[2020-04-30 14:52] LABS: Creatinine, Random Urine 16 mg/dL (20-320); Total Protein/Creatinine Ratio 563 mg/g creat (22-128)
--- NOTE | 2020-04-30 15:01 | PM.PNCARD ---
Progress Note: A&P Assessment and Plan (1) Acute on chronic combined systolic and diastolic CHF (congestive heart failure): Code(s): I50.43 - Acute on chronic combined systolic (congestive) and diastolic (congestive) heart failure Status: Acute Assessment and Plan: Severe lower extremity and scrotal edema secondary to CHF, R>L sided. Cardiomyopathy with EF 38% by Lexiscan, 45-50% by echo. Does not appear to have nephrotic syndrome. Patient has underlying sleep apnea on apneaLink and interstitial fibrosis which is aggravating his cardiac situation. Pulmonary pressure cannot be estimated on the last echo however. Unfortunately, patient refuses to wear CPAP stating he cannot tolerate it. Continue accurate input and output, daily weight. Low-sodium intake. Low dose diuretics resumed by primary service. Will observe response. His edema is proving very difficult to treat. Patient is very complicated with very difficult balance between renal function, treatment of his lower extremity edema, CHF, and tachy-clarissa arrhythmia. (2) Tachycardia-bradycardia: Code(s): I49.5 - Sick sinus syndrome Status: Acute Assessment and Plan: heart rate stable, less bradycardic on amiodarone 200 mg twice daily. He remains off AV sen blocking agents. While I am concerned his ventricular arrhythmias may increase in frequency once again for the past 48 hours he has been stable in this regard. If this holds I would continue current regimen plans for spot facer upon discharge from our office and very soon follow up with electrophysiology as an outpatient. Discussed this plan with the patient who verbalized understanding and agreed. If recurrent significant nonsustained or sustained ventricular tachycardia transfer to outside hospital will likely be necessary. (3) Ventricular tachycardia (paroxysmal): Code(s): I47.2 - Ventricular tachycardia Status: Acute Assessment and Plan: Asymptomatic but frequent PVCs and complex ectopy such as ventricular triplets and runs of nonsustained ventricular tachycardia. This is an ongoing problem. No evidence of acute ischemia, neg Sera 03/2020. Continue telemetry. As above. (4) Acute on chronic renal failure: Code(s): N17.9 - Acute kidney failure, unspecified; N18.9 - Chronic kidney disease, unspecified Status: Acute Assessment and Plan: Acute on chronic kidney disease. Slowly improving off diuretic therapy. Nephrology involvement greatly appreciated. Continue to monitor closely. (5) CAD (coronary artery disease): Code(s): I25.10 - Atherosclerotic heart disease of [place] coronary artery without angina pectoris Status: Acute Assessment and Plan: History of RCA stent in 2012, prior Left anterior descending stent. No anginal symptoms reported. Very slight elevation of troponin with a flat curve, doubt ACS. Continue supportive care medical therapy with ASA, beta-rosa, statin. Will need to discontinue nitrates given hypotension. (6) Symptomatic bradycardia: Code(s): R00.1 - Bradycardia, unspecified Status: Acute Assessment and Plan: As above. Resolving at this time. (7) Hypotension: Code(s): I95.9 - Hypotension, unspecified Status: Acute Assessment and Plan: As above. Resolved. Would allow degree of permissive hypertension in order to tolerate diuresis and observe response. Subjective Date/time seen: Date of service: 04/30/20 15:01 Interval history: Follow-up for acute on chronic systolic and diastolic CHF, right-sided greater than left-sided with severe lower extremity edema. EF 38% by Lexiscan, 45-50% by echo 2020. PVCs and nonsustained V-tach. Acute on chronic renal failure, history of CAD and CANDELARIO not on CPAP.
[2020-04-30] MEDS: FUROSEMIDE INJ 40 MG/4 ML VIAL 20 MG IV PUSH (17:39)
[2020-04-30] MEDS: rOPINIRole HCL 0.5 MG TABLET PO (20:51)
[2020-04-30] MEDS: MIRTAZAPINE 30 MG TABLET PO (20:51)
[2020-05-01] VITALS (12 sets, daily range): BP systolic 101–154; BP diastolic 49–85; PULSE 62–86; RESP 16–20; TEMP 36.1–36.5; O2SAT 94–100
[2020-05-01] MEDS: HYDROcodone/acetaminophen (*CRX) 10-325 MG TABLET 1 TAB PO ×4 (01:48→20:00)
[2020-05-01] MEDS: HEPARIN SODIUM 5,000 UNITS/ML VIAL 5000 UNITS SUB-Q ×3 (05:50→20:01)
[2020-05-01] MEDS: metOLazone 2.5 MG TABLET PO (08:00)
[2020-05-01] MEDS: ASPIRIN 81 MG ENTERIC TABLET PO (08:00)
[2020-05-01] MEDS: ATORVASTATIN 10 MG TABLET PO (08:00)
[2020-05-01] MEDS: GABAPENTIN 300 MG CAPSULE PO (08:00)
[2020-05-01] MEDS: AMIODARONE HCL 200 MG TABLET PO ×2 (08:00→16:01)
[2020-05-01] MEDS: CHOLECALCIFEROL 1,000 UNITS TABLET 2000 UNITS PO (08:00)
[2020-05-01] MEDS: BETAMETHASONE/CLOTRIMAZOLE CR 15 GM TUBE 1 APPLIC TOPICAL ×2 (08:01→20:02)
[2020-05-01] MEDS: polyethylene glycoL 3350 17 GM POWD.PACK PO (08:01)
[2020-05-01] MEDS: EUCERIN CREAM 120 GM JAR 1 APPLIC TOPICAL ×2 (08:01→16:02)
[2020-05-01] MEDS: MULTIVIT W/ IRON, MINERALS 15 ML LIQUID (*BKC) PO (08:01)
[2020-05-01] MEDS: FUROSEMIDE INJ 40 MG/4 ML VIAL 20 MG IV PUSH (08:01)
[2020-05-01] MEDS: SILVERGEL (ELTA) 45 ML 1 APPLIC TOPICAL (08:02)
--- NOTE | 2020-05-01 10:11 | P.PNNP_ITS ---
Progress Note: A&P Assessment and Plan (1) RENATO (acute kidney injury): Code(s): N17.9 - Acute kidney failure, unspecified Status: Acute Assessment and Plan: * presumably due to necessity of diuretic therapy however cannot deny a component of disease progression * recurrent hospitalizations with need for IV diuretics also playing a role as well * renal ultrasound with findings c/w with CKD (bilateral renal atrophy and medical renal disease) * serological evaluation negative to date (some tests still pending) * follow trend of creatinine - mild improvement with holding diuretics * not opposed to restart of diuretic therapy (2) Stage 3a chronic kidney disease: Code(s): N18.31 - Chronic kidney disease, stage 3a Status: Chronic Assessment and Plan: * preumably due to HTN, vascular disease, age-related change * creatinine was 1.3 about a year ago -- current creatinine on admission could be his new baseline (3) Acute on chronic combined systolic and diastolic CHF (congestive heart failure): Code(s): I50.43 - Acute on chronic combined systolic (congestive) and diastolic (congestive) heart failure Status: Acute Assessment and Plan: * suspect for left sided than right (worsened by his CANDELARIO and noncompliance with CPAP) * interstitial lung disease + probable pulmonary HTN playing a role as well * Cardiology following * difficult to treat/stabilize as noted by his frequent hospitalizations in the last couple of month (4) Anasarca: Code(s): R60.1 - Generalized edema Status: Acute Assessment and Plan: * due to right sided heart failure * diuretics to help but doing so at the expense of renal function * follow I/Os and daily weight (5) Hypotension: Code(s): I95.9 - Hypotension, unspecified Status: Acute Assessment and Plan: * BP medications on hold * this is not likely helping renal function either * follow hemodynamics Will continue to follow. Subjective Date/time seen: 04/30/20 10:11 The patient states that he feels better but still has quite a bit of swelling still; blood pressure seems better at this time and although his edema is quite pronouced, his scrotal edema seems somewhat better in general. Exam Narrative: Exam Narrative: General: WD/WN male in NAD Heart: normal S1 and S2; no rub Lungs: decreased at the bases Abdomen: soft, nontender, nondistended, positive bowel sounds Extremities: no cyanosis or clubbing; 2 - 3+ edema Skin: chronic venous stasis changes with dressings over wounds Objective Data Vital Signs Vital Signs: Vital Signs 04/30/20 02:00 04/30/20 04:00 04/30/20 06:00 Temperature 36.6 C Pulse Rate 70 61 82 Respiratory Rate 18 Blood Pressure 160/77 H Pulse Oximetry 89 L 04/30/20 08:00 04/30/20 10:00 Temperature 36.1 C L Pulse Rate 66 60 Respiratory Rate 18 Blood Pressure 160/68 H Pulse Oximetry 98 Intake/Output Intake/Output: Intake & Output 04/28/20 04/29/20 23:59 23:59 Intake Total 2500 1260 Output Total 1200 2050 Balance 1300 -790 Meds/Results Medications: Active Medications Generic Name Dose Route Start Last Admin Trade Name Freq PRN Reason Stop Do
--- NOTE | 2020-05-01 10:11 | PM.PNNEP ---
Progress Note: A&P Assessment and Plan (1) RENATO (acute kidney injury): Code(s): N17.9 - Acute kidney failure, unspecified Status: Acute Assessment and Plan: presumably due to necessity of diuretic therapy however cannot deny a component of disease progression recurrent hospitalizations with need for IV diuretics also playing a role as well renal ultrasound with findings c/w with CKD (bilateral renal atrophy and medical renal disease) serological evaluation negative to date (some tests still pending) follow trend of creatinine - mild improvement with holding diuretics not opposed to restart of diuretic therapy (2) Stage 3a chronic kidney disease: Code(s): N18.31 - Chronic kidney disease, stage 3a Status: Chronic Assessment and Plan: preumably due to HTN, vascular disease, age-related change creatinine was 1.3 about a year ago -- current creatinine on admission could be his new baseline (3) Acute on chronic combined systolic and diastolic CHF (congestive heart failure): Code(s): I50.43 - Acute on chronic combined systolic (congestive) and diastolic (congestive) heart failure Status: Acute Assessment and Plan: suspect for left sided than right (worsened by his CANDELARIO and noncompliance with CPAP) interstitial lung disease + probable pulmonary HTN playing a role as well Cardiology following difficult to treat/stabilize as noted by his frequent hospitalizations in the last couple of month (4) Anasarca: Code(s): R60.1 - Generalized edema Status: Acute Assessment and Plan: due to right sided heart failure diuretics to help but doing so at the expense of renal function follow I/Os and daily weight (5) Hypotension: Code(s): I95.9 - Hypotension, unspecified Status: Acute Assessment and Plan: BP medications on hold this is not likely helping renal function either follow hemodynamics Will continue to follow. Subjective Date/time seen: 04/30/20 10:11 The patient states that he feels better but still has quite a bit of swelling still; blood pressure seems better at this time and although his edema is quite pronouced, his scrotal edema seems somewhat better in general. Exam Narrative: Exam Narrative: General: WD/WN male in NAD Heart: normal S1 and S2; no rub Lungs: decreased at the bases Abdomen: soft, nontender, nondistended, positive bowel sounds Extremities: no cyanosis or clubbing; 2 - 3+ edema Skin: chronic venous stasis changes with dressings over wounds Objective Data Vital Signs Vital Signs: Vital Signs 04/30/20 02:00 04/30/20 04:00 04/30/20 06:00 Temperature 36.6 C Pulse Rate 70 61 82 Respiratory Rate 18 Blood Pressure 160/77 H Pulse Oximetry 89 L 04/30/20 08:00 04/30/20 10:00 Temperature 36.1 C L Pulse Rate 66 60 Respiratory Rate 18 Blood Pressure 160/68 H Pulse Oximetry 98 Intake/Output Intake/Output: Intake & Output 04/28/20 04/29/20 23:59 23:59 Intake Total 2500 1260 Output Total 1200 2050 Balance 1300 -790 Meds/Results Medications: Active Medications Generic Name Dose Route Start Last Admin Trade Name Freq PRN Reason Stop Dose Admin Hydrocodone Bitart/Acetaminophen 1 tab 04/24/20 03:36 05/01/20 14:06 Hydrocodone/Acetaminophen (*Crx) 10-325 Mg Tablet PO 1 tab Q4H PRN Administration pain 7-10 Amiodarone HCl 200 mg 04/28/20 18:25 05/01/20 16:01 Amiodarone Hcl 200 Mg Tablet PO 200 mg BID DUSTIN Administration Aspirin 81 mg 04/24/20 09:00 05/01/20 08:00 Aspirin 81 Mg Enteric Tablet PO 81 mg DAILY DUSTIN Administration Atorvastatin Calcium 10 mg 04/26/20 09:00 05/01/20 08:00 Atorvastatin 10 Mg Tablet PO 10 mg DAILY DUSTIN Administration Clotrimazole 1 applic 04/30/20 09:00 05/01/20 08:01 Betamethasone/Clotrimazole Cr 15 Gm Tube TOPICAL 1 applic Q12HR DUSTIN Administration Furosemide 20 mg 04/30/20 11
--- NOTE | 2020-05-01 11:04 | PM.IMPN ---
Progress Note: A&P Assessment and Plan (1) CHF (congestive heart failure): Qualifiers: Heart failure chronicity: unspecified Heart failure type: unspecified Qualified Code(s): I50.9 - Heart failure, unspecified Code(s): I50.9 - Heart failure, unspecified Status: Acute Assessment and Plan: Patient with massive bilateral lower extremity edema with scrotal edema. Recent Echo showing EF 45-50%. [place] CHF related; consider right-sided failure as well. Chest x-ray showing interstitial fibrosis but cannot exclude pulmonary edema. BNP elevated but this could be from right heart failure as well. Cardiac ischemia seems less likely given the recent normal stress test. Consider also nephrotic syndrome although this is probably less likely. Will continue IV diuretics. Monitor renal function closely. Start Anatoliy hose when able. Check urinalysis. Check LFTs. Cardiology consult has obtained. Daily weights. Dietary consult. Check dopplers Dopplers negative for DVT. I/O: 04/30 2930/5050, overnight to 05/01 240/1700 Continue diuresis Home in 1-2 days (2) RENATO (acute kidney injury): Code(s): N17.9 - Acute kidney failure, unspecified Status: Acute Assessment and Plan: Baseline creatinine 1.3. Creatinine worse this admission at 1.9. Probably related to diuretics but consider urine retention give his hx and that he has elevated PSA and BPH. Check renal US. Renal US showing medical renal disease with bilateral renal atrophy. UA showing 2+ blood and 2+ LE and 10-15WBC. UTI? Check urine eos. Will monitor urine culture. Renal insufficiency is chronic. 05/01 creatinine still pending, 2.0 on 04/30, 2.4 on 04/29 (3) Hyperkalemia: Code(s): E87.5 - Hyperkalemia Status: Acute Assessment and Plan: Potassium is normal. (4) Ventricular tachycardia (paroxysmal): Code(s): I47.2 - Ventricular tachycardia Status: Acute Assessment and Plan: Mag level is 2.1. Controlled on amiodarone Cardiology following and OK with transfer to [facility] (5) Elevated troponin: Code(s): R77.8 - Other specified abnormalities of plasma proteins Status: Acute Assessment and Plan: Troponins are elevated but flat. EKG noted - as above. [place] Type II MT from demand ischemia from the CHF and/or from his RENATO/CKD. Cardiology following. (6) Anemia: Qualifiers: Anemia type: iron deficiency Iron deficiency anemia type: unspecified iron deficiency Qualified Code(s): D50.9 - Iron deficiency anemia, unspecified Code(s): D64.9 - Anemia, unspecified Status: Acute Assessment and Plan: Hgb stable from last admission in [place]. On chart review, do not see iron studies, etc. Will check stool guaiac and check baseline labs. Monitor HH closely. Immature retic fraction high but absolute retic low to suggest BM involvement. Iron deficiency by labs. Iron replacement (7) Ulcers of both lower legs: Code(s): L97.919 - Non-pressure chronic ulcer of unspecified part of right lower leg with unspecified severity; L97.929 - Non-pressure chronic ulcer of unspecified part of left lower leg with unspecified severity Status: Acute Assessment and Plan: Multiple LE ulcers related to the edema with weeping. 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 industrial commercial groundskeeper consult. Dressing changes. Improve edema. (8) CKD (chronic kidney disease): Code(s): N18.9 - Chronic kidney disease, unspecified Status: Acute Assessment and Plan: Baseline Cr 1.3. (9) Pulmonary fibrosis: Code(s): J84.10 - Pulmonary fibrosis, unspecified Status: Acute Assessment and Plan: Chronic pulmonary fibrosis. Related to work exposure? Not on O2. Unclear if he has had a workup for this. Follow (10) Hypertension: Code(s): I10 - Essential (primary) hypertension Status: Acute Assessment and Plan
[2020-05-01 12:02] LABS: Hematocrit 29.2 % (42.0-52.0); Hemoglobin 9.4 g/dL (14.0-18.0); Mean Corpuscular HGB Conc 32.2 g/dl (32-36); Mean Corpuscular Hemoglobin 31.2 pg (26-34); Platelet Count Result 303 k/mm3 (150-375); Red Blood Count 3.01 M/mm3 (4.6-6.20); White Blood Count 11.3 K/mm3 (4.5-10.0)
[2020-05-01 12:21] LABS: Alanine Aminotransferase 13 U/L (4-50); Albumin Level 3.6 g/dL (3.5-5.1); Alkaline Phosphatase 63 U/L (38-126); Anion Gap 7 mmol/L (8-16); Aspartate Amino Transferase 40 U/L (17-59); Bilirubin,Total 0.4 mg/dL (0.2-1.3); Blood Urea Nitrogen 43 mg/dL (9-20); Calcium 8.4 mg/dL (8.4-10.2); Carbon Dioxide 28 mmol/L (22-30); Chloride 94 mmol/L (98-107); Estimated CRCL calculation 41 ml/min; Estimated Glomerular Filt Rate 48; Glucose 132 mg/dL (75-110); Potassium 4.6 mmol/L (3.4-5.0); Sodium 129 mmol/L (137-145)
--- NOTE | 2020-05-01 12:34 | PM.PNCARD ---
Progress Note: A&P Assessment and Plan (1) Acute on chronic combined systolic and diastolic CHF (congestive heart failure): Code(s): I50.43 - Acute on chronic combined systolic (congestive) and diastolic (congestive) heart failure Status: Acute Assessment and Plan: Severe lower extremity and scrotal edema secondary to CHF, R>L sided. Cardiomyopathy with EF 38% by Lexiscan, 45-50% by echo. Does not appear to have nephrotic syndrome. Patient has underlying sleep apnea on apneaLink and interstitial fibrosis which is aggravating his cardiac situation. Pulmonary pressure cannot be estimated on the last echo however. If urine output declines with persistent and significant volume overload 2 options. Initiate Lasix continuous drip at 10 milligrams/hour or change to bumetanide as patient continues to be significantly volume overloaded with a great deal of uncomfortable, persistent edema. Nephrology involvement greatly appreciated. (2) Tachycardia-bradycardia: Code(s): I49.5 - Sick sinus syndrome Status: Acute Assessment and Plan: heart rate stable, less bradycardic on amiodarone 200 mg twice daily. He remains off AV sen blocking agents. While I am concerned his ventricular arrhythmias may increase in frequency once again for the past 48 hours he has been stable in this regard. If this holds I would continue current regimen plans for women nurse upon discharge from our office and very soon follow up with electrophysiology as an outpatient. Discussed this plan with the patient who verbalized understanding and agreed. If recurrent significant nonsustained or sustained ventricular tachycardia transfer to outside hospital will likely be necessary. - doing quite well on current regimen. Although technically would benefit from AV sen blocking agents given LV dysfunction, bradycardia prohibits this. As such, will continue amiodarone 200 mg twice daily which he is tolerating well and is controlling nonsustained VT. If patient continues in this manner, outpatient women nurse in electrophysiology follow-up very soon upon discharge. (3) Ventricular tachycardia (paroxysmal): Code(s): I47.2 - Ventricular tachycardia Status: Acute Assessment and Plan: Asymptomatic but frequent PVCs and complex ectopy such as ventricular triplets and runs of nonsustained ventricular tachycardia. This is an ongoing problem. No evidence of acute ischemia, neg Sera 03/2020. Continue telemetry. As above. (4) Acute on chronic renal failure: Code(s): N17.9 - Acute kidney failure, unspecified; N18.9 - Chronic kidney disease, unspecified Status: Acute Assessment and Plan: Acute on chronic kidney disease. Slowly improving off diuretic therapy. Nephrology involvement greatly appreciated. Diuretic considerations as above. Continue to monitor closely. (5) CAD (coronary artery disease): Code(s): I25.10 - Atherosclerotic heart disease of [place] coronary artery without angina pectoris Status: Acute Assessment and Plan: History of RCA stent in 2012, prior Left anterior descending stent. No anginal symptoms reported. Very slight elevation of troponin with a flat curve, doubt ACS. Continue supportive care medical therapy with ASA, beta-rosa, statin. Will need to discontinue nitrates given hypotension. (6) Symptomatic bradycardia: Code(s): R00.1 - Bradycardia, unspecified Status: Acute Assessment and Plan: As above. Resolved at present. (7) Hypotension: Code(s): I95.9 - Hypotension, unspecified Status: Acute Assessment and Plan: As above. Resolved. Would allow degree of permissive hypertension in order to tolerate diuresis and observe response. Subjective Date
--- NOTE | 2020-05-01 13:29 | PC.NURSE ---
This patient, Chong Ward, was received from IMU on 05/01/20 at 1329. Patient/family oriented to unit policies and routines. Report received from KYRA Miller.
--- NOTE | 2020-05-01 13:31 | PC.NURSE ---
This patient, Chong Ward, was transferred to [ [address] [place] [address]] on 05/01/20 at 1332. Personal belongings sent with patient. Report given to [penelope ]. Appropriate documentation sent with patient.
--- NOTE | 2020-05-01 15:20 | P.PNNP_ITS ---
Progress Note: A&P Assessment and Plan (1) RENATO (acute kidney injury): Code(s): N17.9 - Acute kidney failure, unspecified Status: Acute Assessment and Plan: * presumably due to necessity of diuretic therapy however cannot deny a component of disease progression * recurrent hospitalizations with need for IV diuretics also playing a role as well * renal ultrasound with findings c/w with CKD (bilateral renal atrophy and medical renal disease) * serological evaluation negative to date (some tests still pending) * follow trend of creatinine - improvement noted (with holding diuretics) * resumed on low dose diuretic therapy yesterday * I tend to agree with Cardiology: limited options available and I suspect his edema/swelling is a longstanding issue/problem that is not likely to every be fully optimized -- lasix gtt versus IV bumex are acceptable options but limiting factor will be how he responds and how will his kidney function tolerates these interventions but I worry this will only be a temporary fix as his fluid status is likely to deteriorate on discharge much as it has on h is previous hospitalizations... (2) Stage 3a chronic kidney disease: Code(s): N18.31 - Chronic kidney disease, stage 3a Status: Chronic Assessment and Plan: * preumably due to HTN, vascular disease, age-related change * creatinine was 1.3 about a year ago -- doing better currently (due to being off diuretics for a few days?) * likely to rise again with higher doses of diuretics and this may be a situation where we have to accept a higher creatinine in an attempt to maintain his fluid/volume status... (3) Acute on chronic combined systolic and diastolic CHF (congestive heart failure): Code(s): I50.43 - Acute on chronic combined systolic (congestive) and diastolic (congestive) heart failure Status: Acute Assessment and Plan: * suspect for left sided than right (worsened by his CANDELARIO and noncompliance with CPAP) * interstitial lung disease + probable pulmonary HTN playing a role as well * Cardiology following * difficult to treat/stabilize as noted by his frequent hospitalizations in the last couple of months (4) Anasarca: Code(s): R60.1 - Generalized edema Status: Acute Assessment and Plan: * due to right sided heart failure * diuretics to help but doing so at the expense of renal function as noted previously (see #1) * follow I/Os and daily weight (5) Hypotension: Code(s): I95.9 - Hypotension, unspecified Status: Acute Assessment and Plan: * BP medications on hold * this is not likely helping renal function either * follow hemodynamics Will continue to follow. Subjective Date/time seen: 05/01/20 15:20 Reasonable urine output with re-institution of diuretic therapy yesterday however continues to to have significant generalized edema/swelling; he states his breathing is better and exertional dyspnea has improved as well. Exam Narrative: Exam Narrative: General: WD/WN male in NAD Heart: normal S1 and S2; no rub Lungs: decreased at the bases Abdomen: soft, nontender, nondistended, positive bowel sounds Extremities: no cyanosis or clubbing; 2 - 3+ edema Skin: chronic venous stasis changes with dressings present Objective Data Vital Signs Vital Signs: Vital Signs Temp Pulse Resp BP Pulse Ox 05/01/20 12:00 36.2 C L 67 18 136/58 L 100 05/01/20 09:26 64 05/01/20 08
--- NOTE | 2020-05-01 15:20 | PM.PNNEP ---
Progress Note: A&P Assessment and Plan (1) RENATO (acute kidney injury): Code(s): N17.9 - Acute kidney failure, unspecified Status: Acute Assessment and Plan: presumably due to necessity of diuretic therapy however cannot deny a component of disease progression recurrent hospitalizations with need for IV diuretics also playing a role as well renal ultrasound with findings c/w with CKD (bilateral renal atrophy and medical renal disease) serological evaluation negative to date (some tests still pending) follow trend of creatinine - improvement noted (with holding diuretics) resumed on low dose diuretic therapy yesterday I tend to agree with Cardiology: limited options available and I suspect his edema/swelling is a longstanding issue/problem that is not likely to every be fully optimized -- lasix gtt versus IV bumex are acceptable options but limiting factor will be how he responds and how will his kidney function tolerates these interventions but I worry this will only be a temporary fix as his fluid status is likely to deteriorate on discharge much as it has on his previous hospitalizations... (2) Stage 3a chronic kidney disease: Code(s): N18.31 - Chronic kidney disease, stage 3a Status: Chronic Assessment and Plan: preumably due to HTN, vascular disease, age-related change creatinine was 1.3 about a year ago -- doing better currently (due to being off diuretics for a few days?) likely to rise again with higher doses of diuretics and this may be a situation where we have to accept a higher creatinine in an attempt to maintain his fluid/volume status... (3) Acute on chronic combined systolic and diastolic CHF (congestive heart failure): Code(s): I50.43 - Acute on chronic combined systolic (congestive) and diastolic (congestive) heart failure Status: Acute Assessment and Plan: suspect for left sided than right (worsened by his CANDELARIO and noncompliance with CPAP) interstitial lung disease + probable pulmonary HTN playing a role as well Cardiology following difficult to treat/stabilize as noted by his frequent hospitalizations in the last couple of months (4) Anasarca: Code(s): R60.1 - Generalized edema Status: Acute Assessment and Plan: due to right sided heart failure diuretics to help but doing so at the expense of renal function as noted previously (see #1) follow I/Os and daily weight (5) Hypotension: Code(s): I95.9 - Hypotension, unspecified Status: Acute Assessment and Plan: BP medications on hold this is not likely helping renal function either follow hemodynamics Will continue to follow. Subjective Date/time seen: 05/01/20 15:20 Reasonable urine output with re-institution of diuretic therapy yesterday however continues to to have significant generalized edema/swelling; he states his breathing is better and exertional dyspnea has improved as well. Exam Narrative: Exam Narrative: General: WD/WN male in NAD Heart: normal S1 and S2; no rub Lungs: decreased at the bases Abdomen: soft, nontender, nondistended, positive bowel sounds Extremities: no cyanosis or clubbing; 2 - 3+ edema Skin: chronic venous stasis changes with dressings present Objective Data Vital Signs Vital Signs: Vital Signs Temp Pulse Resp BP Pulse Ox 05/01/20 12:00 36.2 C L 67 18 136/58 L 100 05/01/20 09:26 64 05/01/20 08:00 71 05/01/20 07:50 36.2 C L 70 18 134/53 L 97 05/01/20 06:00 69 05/01/20 04:00 36.1 C L 86 16 126/49 L 94 05/01/20 02:00 66 05/01/20 00:00 36.4 C L 63 20 154/63 H 97 04/30/20 22:00 70 04/30/20 20:00 54 L 04/30/20 18:42 36.3 C L 61 20 119/50 L 100 Intake/Output Intake/Output: Intake & Output 04/28/20 04/29/20 04/30/20 05/01/20 23:59 23:59 23:59 23:59 Intake Total 2500 1260 2930 880 Output Total 1200 2050 5050 4200 Balance [phone] -
[2020-05-01] MEDS: MELATONIN 5 MG TABLET 10 MG PO (20:00)
[2020-05-01] MEDS: rOPINIRole HCL 0.5 MG TABLET PO (20:01)
[2020-05-01] MEDS: MIRTAZAPINE 30 MG TABLET PO (20:01)
[2020-05-02] VITALS: BP 146/60; PULSE 64; PULSE 66; RESP 20; TEMP 36.3; O2SAT 100
--- NOTE | 2020-05-02 | PC.NURSE ---
Pt is refusing to use alarm. Made statements that IMU left alarm off. Hollering that he was being treated like a prisoner. Pt was made aware of risks of not having alarm on. Understands our reasons for using alarm. States he cannot not move. Spoke with house piping inspector Yvette Duran, she stated that IMU did have alarm off and we can leave alarm off. Pt states he will accept responsibility if he were to fall.
[2020-05-02] MEDS: HYDROcodone/acetaminophen (*CRX) 10-325 MG TABLET 1 TAB PO ×3 (00:44→10:31)
[2020-05-02 04:00] VITALS: BP 138/88; PULSE 85; PULSE 88; RESP 20; TEMP 36.2; O2SAT 93
[2020-05-02] MEDS: HEPARIN SODIUM 5,000 UNITS/ML VIAL 5000 UNITS SUB-Q (04:49)
[2020-05-02 05:39] LABS: Albumin Level 3.3 g/dL (3.5-5.1); Anion Gap 7 mmol/L (8-16); Blood Urea Nitrogen 40 mg/dL (9-20); Carbon Dioxide 26 mmol/L (22-30); Chloride 94 mmol/L (98-107); Estimated CRCL calculation 41 ml/min; Estimated Glomerular Filt Rate 48; Glucose 126 mg/dL (75-110); Phosphorus 3.1 mg/dL (2.5-4.5); Potassium 4.6 mmol/L (3.4-5.0); Sodium 127 mmol/L (137-145)
[2020-05-02 08:00] VITALS: BP 146/68; PULSE 61; PULSE 78; RESP 20; TEMP 36.3; O2SAT 99
[2020-05-02] MEDS: SILVERGEL (ELTA) 45 ML 1 APPLIC TOPICAL (08:05)
[2020-05-02] MEDS: GABAPENTIN 300 MG CAPSULE PO (08:12)
[2020-05-02] MEDS: ATORVASTATIN 10 MG TABLET PO (08:12)
[2020-05-02 08:13] VITALS: PULSE 64
[2020-05-02] MEDS: ASPIRIN 81 MG ENTERIC TABLET PO (08:13)
[2020-05-02] MEDS: metOLazone 2.5 MG TABLET PO (08:13)
[2020-05-02] MEDS: AMIODARONE HCL 200 MG TABLET PO (08:13)
[2020-05-02] MEDS: CHOLECALCIFEROL 1,000 UNITS TABLET 2000 UNITS PO (08:13)
[2020-05-02] MEDS: EUCERIN CREAM 120 GM JAR 1 APPLIC TOPICAL (08:14)
[2020-05-02] MEDS: FUROSEMIDE INJ 40 MG/4 ML VIAL 20 MG IV PUSH (08:14)
[2020-05-02] MEDS: BETAMETHASONE/CLOTRIMAZOLE CR 15 GM TUBE 1 APPLIC TOPICAL (08:15)
[2020-05-02] MEDS: MULTIVIT W/ IRON, MINERALS 15 ML LIQUID (*BKC) PO (08:15)
--- NOTE | 2020-05-02 10:54 | PM.PNCARD ---
Progress Note: A&P Assessment and Plan (1) Acute on chronic combined systolic and diastolic CHF (congestive heart failure): Code(s): I50.43 - Acute on chronic combined systolic (congestive) and diastolic (congestive) heart failure Status: Acute Assessment and Plan: Severe lower extremity and scrotal edema secondary to CHF, R>L sided. Cardiomyopathy with EF 38% by Lexiscan, 45-50% by echo. Does not appear to have nephrotic syndrome. Patient has underlying sleep apnea on apneaLink and interstitial fibrosis which is aggravating his cardiac situation. Pulmonary pressure cannot be estimated on the last echo however. Explained to the patient his discharge today is not ideal nor my recommendation. He understands this but states he is living on the last period given the circumstances and after discussion with Nephrology a recommend changing to Bumex 1 mg b.i.d. with continued metolazone 30-60 minutes before morning Bumex. He should follow-up with basic metabolic panel in 1 week. CHF counseling. He should weigh himself daily, follow a 1500 mg daily sodium intake or last diet and call with ongoing weight gain. He will follow up with Dr. Pereira in the office in 1-2 weeks upon discharge. He is well aware of the risks he is taking particularly further decompensation and repeat hospitalizations. He states he can no longer stand the hospital no matter what accepts this risk. (2) Tachycardia-bradycardia: Code(s): I49.5 - Sick sinus syndrome Status: Acute Assessment and Plan: heart rate stable, less bradycardic on amiodarone 200 mg twice daily. He remains off AV sen blocking agents. While I am concerned his ventricular arrhythmias may increase in frequency once again for the past 48 hours he has been stable in this regard. If this holds I would continue current regimen plans for youth nutritional monitor upon discharge from our office and very soon follow up with electrophysiology as an outpatient. Discussed this plan with the patient who verbalized understanding and agreed. If recurrent significant nonsustained or sustained ventricular tachycardia transfer to outside hospital will likely be necessary. - doing quite well on current regimen. Although technically would benefit from AV sen blocking agents given LV dysfunction, bradycardia prohibits this. As such, will continue amiodarone 200 mg twice daily which he is tolerating well and is controlling nonsustained VT. I explained ideally he should have youth nutritional monitor placed immediately a discharge but over the weekend and his demand to be discharged today this is not possible. As such, he has been advised he will be contacted by our office and to make arrangements to obtain his youth nutritional monitor in our office tomorrow. He states he will absolutely do so. Furthermore, he needs to have follow-up with electrophysiology at [facility] as soon as possible for further management recommendations with regards to history of nonsustained VT. We will continue amiodarone 200 mg twice daily but hold additional AV sen blocking agents. Given his nonsustained VT as was previously counseled reviewed the risk for potential sudden cardiac should he develop life-threatening or fatal ventricular tachyarrhythmias and hence the need for compliance with medications such as amiodarone and follow up as advised. Verbalized understanding. (3) Ventricular tachycardia (paroxysmal): Code(s): I47.2 - Ventricular tachycardia Status: Acute Assessment and Plan: Asymptomatic but frequent PVCs and complex ectopy such as ventricular triplets and runs of nonsustained ventricular tachycardia. This is an ongoing problem. No evidence of acute ischemia, neg Sera 03/2020. As above. (4) Acute on chronic renal failure: Code(s): N17.9 - Acute kidney failure, unspecified; N18.9 -
--- NOTE | 2020-05-02 11:21 | PM.DS ---
DS: Admitting Diagnosis Admitting Diagnosis Admitting Diagnosis: 1) CHF (congestive heart failure): (2) RENATO (acute kidney injury): (3) Hyperkalemia: (4) Ventricular tachycardia (paroxysmal): (5) Elevated troponin: (6) Anemia: (7) Ulcers of both lower legs: (8) CKD (chronic kidney disease): (9) Pulmonary fibrosis: (10) Hypertension: DS: Discharge Diagnosis Discharge Diagnosis (1) Acute on chronic combined systolic and diastolic CHF (congestive heart failure): Code(s): I50.43 - Acute on chronic combined systolic (congestive) and diastolic (congestive) heart failure Status: Acute (2) Anasarca: Code(s): R60.1 - Generalized edema Status: Acute (3) Chronic renal impairment, stage 3a: Code(s): N18.31 - Chronic kidney disease, stage 3a Status: Acute (4) Tachycardia-bradycardia: Code(s): I49.5 - Sick sinus syndrome Status: Acute (5) Pulmonary fibrosis: Code(s): J84.10 - Pulmonary fibrosis, unspecified Status: Acute (6) RENATO (acute kidney injury): Code(s): N17.9 - Acute kidney failure, unspecified Status: Acute (7) Bilateral chronic knee pain: Code(s): M25.561 - Pain in right knee; M25.562 - Pain in left knee; G89.29 - Other chronic pain Status: Acute DS: Summary Hospital Course Hospital Course: Chong Ward is a 85 year old male with HTN and ?CHF here due to scrotal and leg edema. Patient states he has had lower extremity edema with scrotal edema for the past 2-3 weeks. He presented to [facility] and was hospitalized for 5 days. He initially states that they did not know what was wrong with him but later states that was diagnosed with congestive heart failure. He returned home and was there for about 10 days until returning to [facility] for the similar symptoms and was hospitalized again for 2 more days. He was discharged on SundayApril 16. Since that time he has noted increasing edema including scrotal edema. Records in the chart showing patient hospitalized from 04/02 to 04/07/20. He was treated for cellulitis of the left foot. He also had RENATO/CKD and hyponatremia and decompensated diastolic CHF. Echo with EF 45-50%, no wall motion abnormalities, Grade II diastolic dysfunction, JAIME but no RVSP measurements. Stress test 04/06/20 showing no evidence of UT or infarction but EF 38% with global HK. He does have a hx of CAD with ZOILA to RCA in 2012. CT of the abdomen showing pulmonary fibrosis. Pulmonary HTN listed in the problem list. On 04/07/20, Cr 1.3, potassium 5.1 and Hgb 8.8. Albumin 3.3 Patient states he was diagnosed with sleep apnea 20 years ago. He wore CPAP for about a week but nothing since that time. Patient denies any PND or orthopnea. He has dyspnea on exertion but no shortness of breath at rest. No chest pain or palpitations. Positive weight gain. When he lies down his legs do shake and this improves with walking. He normally walks with a cane. He denies any fever, chills, vision changes, odynophagia, dysphagia, hearing loss. He has been having a cough that has worsened over the past 1-2 days productive whitish sputum. No history of COPD or asthma. He has not been wheezing. No outpatient exposure to COVID. 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 No nausea, vomiting, diarrhea, constipation, melena or hematochezia. No abdominal pain. Last colonoscopy was 20+ years ago. No dysuria or hematuria. He does have difficulty voiding with a weak stream. Denies depression, anxiety, SI or HI. Chronic narcotics since 1997 for knee pain; takes Hydrocodone 5-6 tabs per day. Denies any focal weakness but does feel tired very early if he over exerts. He walks with a cane; no recent falls. He has noted sores in his feet that began about 1
== END 2020-05-02 12:36 | disposition home health service (06) | DRG 280 ==
LOC: ANHED 23:05 → ANHIMU 04-24 03:27 → ANH2MED 05-02 11:42 → ANHIMU 05-05 15:52
PROVIDERS: Internal Medicine; Internal Medicine Cardiovascular Disease; Admitting Provider Internal Medicine; Emergency Provider Emergency Medicine; PCP Family Medicine; Visit Provider Internal Medicine
DX: I13.0 Hypertensive heart and chronic kidney disease with heart failure and stage 1 through stage 4 chronic kidney disease, or unspecified chronic kidney disease (principal); I50.43 Acute on chronic combined systolic (congestive) and diastolic (congestive) heart failure; I21.A1 Myocardial infarction type 2; N17.9 Acute kidney failure, unspecified; I47.2 Ventricular tachycardia; I42.9 Cardiomyopathy, unspecified; I50.9 Heart failure, unspecified; D64.9 Anemia, unspecified; I87.8 Other specified disorders of veins; J84.10 Pulmonary fibrosis, unspecified; N18.31 Chronic kidney disease, stage 3a; I25.10 Atherosclerotic heart disease of native coronary artery without angina pectoris; G47.33 Obstructive sleep apnea (adult) (pediatric); E87.5 Hyperkalemia; Z66 Do not resuscitate; I49.5 Sick sinus syndrome
CPT/HCPCS: 36415; 51702; 71045; 76775; 80048; 80053; 80061; 80069; 81001; 82274; 82533; 82550; 82570; 82607; 82728; 82746; 83540; 83550; 83735; 83880; 84153; 84155; 84156; 84165; 84166; 84439; 84443; 84480; 84484; 85025; 85027; 85046; 85610; 85730; 85999; 86038; 86039; 86140; 86160; 86162; 86225; 86334; 86704; 86706; 86803; 87086; 87088; 87340; 93005; 93970; 94660; 94762; 96374; 96375; 99285; A9270; J0131; J0282; J0696; J1644; J1756; J1940; J2270; J2405; J3475; J7040; J7050

== ENCOUNTER 2020-05-10 10:36 | Outpatient (NON) | payer MEDICARE, SELFPAY ==
[2020-05-10 11:02] LABS: Anion Gap 6 mmol/L (8-16); Blood Urea Nitrogen 34 mg/dL (9-20); Calcium 7.8 mg/dL (8.4-10.2); Carbon Dioxide 32 mmol/L (22-30); Chloride 90 mmol/L (98-107); Estimated Glomerular Filt Rate 39; Glucose 126 mg/dL (75-110); Potassium 5.7 mmol/L (3.4-5.0); Sodium 128 mmol/L (137-145)
== END 2020-05-10 10:37 ==
PROVIDERS: PCP Family Medicine; Visit Provider Internal Medicine Cardiovascular Disease
DX: I25.10 Atherosclerotic heart disease of native coronary artery without angina pectoris (principal); I11.0 Hypertensive heart disease with heart failure; I50.43 Acute on chronic combined systolic (congestive) and diastolic (congestive) heart failure; I50.813 Acute on chronic right heart failure
CPT/HCPCS: 80048

== ENCOUNTER 2020-05-21 12:01 | Outpatient (NON) | payer MEDICARE, SELFPAY ==
[2020-05-21 12:37] LABS: Anion Gap 8 mmol/L (8-16); Blood Urea Nitrogen 45 mg/dL (9-20); Carbon Dioxide 31 mmol/L (22-30); Chloride 82 mmol/L (98-107); Estimated Glomerular Filt Rate 41; Glucose 137 mg/dL (75-110); Potassium 4.8 mmol/L (3.4-5.0); Sodium 121 mmol/L (137-145)
== END 2020-05-21 12:02 ==
PROVIDERS: PCP Family Medicine; Visit Provider Internal Medicine Cardiovascular Disease
DX: I25.10 Atherosclerotic heart disease of native coronary artery without angina pectoris (principal); I11.0 Hypertensive heart disease with heart failure; I50.43 Acute on chronic combined systolic (congestive) and diastolic (congestive) heart failure; I50.813 Acute on chronic right heart failure
CPT/HCPCS: 80048

== ENCOUNTER 2020-06-26 13:14 | Emergency (ER) | payer OTHER, MEDICARE, SELFPAY ==
[2020-06-26] VITALS (11 sets, daily range): BP systolic 124–171; BP diastolic 59–118; PULSE 54–75; RESP 13–23; TEMP 36.2; O2SAT 86–95
--- NOTE | ~2020-06-26 | CT_ITS ---
EXAMINATION: CT brain wo con DATE: 06/26/2020 15:07 INDICATION: Generalized weakness. Frequent falls. TECHNIQUE: Computed tomography (CT) of the abdomen and pelvis was performed without intravenous contr ast. The dose-length product was 605.33 mGy-cm. The mA was adjusted according to patient size. Iterat teri reconstruction technique was employed. COMPARISON: None. FINDINGS: Mild generalized atrophy. There are scattered mild periventricular and subcortical white ma tter changes, most likely related to small vessel ischemic disease (microangiopathy). No acute intrac ranial hemorrhage, infarction, mass or mass effect. Basilar cisterns are patent. There is intracrania l atherosclerosis. Paranasal sinuses and mastoids are pneumatized. No depressed skull fractures. IMPRESSION: 1. No acute intracranial abnormality. 2: Chronic age-related findings. Reviewed, dictated and finalized at location A.
--- NOTE | ~2020-06-26 | XR_ITS ---
EXAMINATION: XR chest 2V DATE: 06/26/2020 14:29 INDICATION: Shortness of breath. Cough. TECHNIQUE: Frontal and lateral views of the chest were obtained. COMPARISON: Chest single view 04/23/2020 FINDINGS: A calcified right lung nodule and calcified right hilar lymph node are consistent with old granulomatous disease. There are chronic reticular opacities at the lung bases. No pleural effusion o r pneumothorax. The heart size is normal. There are changes of anterior fusion procedure in cervical spine. IMPRESSION: 1. Chronic reticular opacities at the lung bases, consistent with atelectasis versus scarring. Reviewed, dictated and finalized at location A. IMPRESSION: 1. Chronic reticular opacities at the lung bases, consistent with atelectasis v ersus scarring.
--- NOTE | 2020-06-26 13:25 | ECG_ITS ---
Measurements Intervals [place] Rate: 54 P: 94 MD: 251 QRS: -44 QRSD: 158 T: 81 QT: 456 QTc: 435 Interpretive Statements SINUS BRADYCARDIA WITH FIRST DEGREE AV BLOCK LEFT AXIS DEVIATION INTRAVENTRICULAR CONDUCTION DELAY LEFT VENTRICULAR HYPERTROPHY POOR R WAVE PROGRESSION, ANTERIOR LEADS BASELINE ARTIFACT- I, II, III, AVR, AVL, AVF, V1-V6 ABNORMAL ECG Electronically Signed On 06-26-2020 13:58:05 CDT by Flako Silva D.O.
--- NOTE | 2020-06-26 13:43 | PC.NURSE ---
CALL PLACED TO [facility] STATED THAT THEY WILL HAVE A NURSE CALL ME
[2020-06-26 13:45] LABS: Add Urine Microscopic? YES; Appearance Urine Clear (Clear); Bilirubin Urine Negative (Negative); Blood Urine Negative (Negative); Color Urine Straw (Yellow); Glucose Urine UA Negative (Negative); Ketones Urine Negative (Negative); Leukocyte Esterase Ur Negative LEU/UL (Negative); Mucus Urine Rare /lpf; Nitrate Urine Negative (Negative); Protein Urine 1+ mg/dL (Negative); Specific Grav Ur 1.008 (1.001-1.035); Urobilinogen Urine Negative mg/dL (<2.0); WBC Urine 0-3 /hpf
--- NOTE | 2020-06-26 13:47 | PC.NURSE ---
CALL PLACED TO EMERGENCY CONTACT DARIANA. SHE IS SPEAKING TO DR GIMENEZ AT THIS TIME
[2020-06-26 14:10] LABS: Basophils Percent Auto 0.2 % (0.2-1.2); Eosinophils Percent Auto 0.1 % (0-4.4); Hematocrit 37.9 % (42.0-52.0); Immature Granulocyte Absolute 0.15 K/mm3 (0.00-0.031); Immature Granulocyte Percent A 0.8 % (0-0.5); Lymphocytes Absolute Auto 0.49 K/mm3 (0.9-3.2); Lymphocytes Percent Auto 2.8 % (18.3-44.2); Mean Corpuscular HGB Conc 34.3 g/dl (32-36); Mean Corpuscular Hemoglobin 26.9 pg (26-34); Mean Corpuscular Volume 78.5 fl (80-100); Mean Platelet Volume 10.3 fl (7.4-10.4); Monocytes Absolute Auto 0.8 K/mm3 (0.1-0.6); Monocytes Percent Auto 4.2 % (2.6-8.5); Neutrophils Absolute Auto 16.3 K/mm3 (1.3-6.7); Neutrophils Percent Auto 91.9 % (45.5-73.1); Platelet Count Result 286 k/mm3 (150-375); Red Blood Count 4.83 M/mm3 (4.6-6.20); Red Cell Distribution Width 17.2 % (11.5-14.5); White Blood Count 17.7 K/mm3 (4.5-10.0)
[2020-06-26 14:11] LABS: Alveolar/Arterial O2 Gradient 141.6 mmHg; Base Excess ABG 13.2 mEq/l (+/-2.0); Carboxyhemoglobin 2.2 % THb (0-2.0); Fractional Inspired Oxygen 36 %; HCO3 ABG 38.3 mEq/l (22.0-26.0); Methemoglobin ABG 0.2 %THb (0-1.5); Oxygen Content ABG 16.3 %vol (16.0-22.0); Oxygen Saturation ABG 91.6 % (95.0-100.0); Oxyhemoglobin 88.5 % THb (90.0-100.0); PO2 ABG 57.1 mmHg (80.0-100.0); PO2 FiO2 Ratio Arterial Blood 1.59 %; Reduced Hemoglobin 9.1 %THb (0-5.0); Site Drawn LEFT RADIAL; Total Hemoglobin 13.1 g/dL (12.0-18.0); pH ABG 7.502 (7.350-7.450)
[2020-06-26 14:12] LABS: Device NASAL CANNULA; Modified Allen's Test Pass
--- NOTE | 2020-06-26 14:30 | ED.WEAKNESS ---
HPI - Weakness General Chief complaint: Weakness Stated complaint: weak & dizzy Source: patient Mode of arrival: EMS History of Present Illness HPI Narrative: This is an 85 year old male with history multiple medical problems including CHF who presents from home for evaluation of weakness. Patient was placed on hospice 1 month ago for his CHF. I spoke with patient's partner over the phone and she states patient is not eating and drinking over the past few days. Today he is too weak to walk. She states he has tried to get out of bed to go to bathroom twice and he has fall. Patient denies chest pain, abdominal pain, nausea, vomiting. He does complain of leg cramping. He reports chronic sob but it is now worse. He was placed on 4L NC on arrival to ER due to hypoxia. Related Data Home Medications Medication Instructions Recorded Confirmed aspirin 81 mg tablet,delayed 81 mg PO DAILY 01/23/19 04/24/20 release cholecalciferol (vitamin D3) 50 2,000 unit PO DAILY 01/23/19 04/24/20 mcg (2,000 unit) capsule melatonin 10 mg capsule 10 mg PO ONCE PRN cap 01/23/19 04/24/20 ropinirole 0.5 mg tablet 0.5 mg PO HS tablet 04/22/20 04/24/20 Adults Multivitamin 1 tablet PO DAILY 04/24/20 04/24/20 albuterol sulfate [Proventil HFA] 2 inhalation INHALATION Q4H PRN 04/24/20 04/24/20 Allergies Allergy/AdvReac Type Severity Reaction Status Date / Time No Known Allergies Allergy Verified 04/24/20 02:26 Review of Systems Review of Systems: All systems reviewed & are unremarkable except as noted in HPI and below PMFSH Past Medical History Medical History (Updated 06/27/20 @ 00:00 by Background Daemon) Acute on chronic combined systolic and diastolic CHF (congestive heart failure) Acute on chronic right heart failure Age-related osteoporosis without current pathological fracture Anxiety Arthritis Bilateral chronic knee pain BPH (benign prostatic hyperplasia) CAD (coronary artery disease) ZOILA to the RCA 2012 Chronic pain syndrome Chronic narcotics since 1997 for knee pain CKD (chronic kidney disease) COPD (chronic obstructive pulmonary disease) Current moderate episode of major depressive disorder Elevated PSA (~01/2019) FH: total knee replacement Generalized neuropathy Hypertension Moderate episode of recurrent major depressive disorder CANDELARIO (obstructive sleep apnea) Other chronic pain Other terminal gauger (current) drug therapy Pulmonary fibrosis Pulmonary HTN Surgical History Surgical History H/O hernia repair History of ear surgery History of knee replacement Hx of cataract surgery bilaterally Family History Family History (Updated 04/24/20 @ 16:21 by Dianelys Pereira MD) Mother Acute myocardial infarction of some type of heart disease in her 80's Father Alcohol abuse Social History Social History (Updated 04/24/20 @ 16:22 by Dianelys Pereira MD) Social History: and ex-sife 1 year ago. He is currently living with girl friend of 10-15 years, Audrey, in [place]. Smoked 1ppd x 30 yrs. 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 He quit in his 40's but still smokes a cigar at times. Patient is DNR. He nominates Audrey to be the individual who would make medical decisions for him if he is not able. Rare alcohol use. No history of drug use. Smoking packs per day: 1 Smoking cigarettes per day: 20.0 Years smoked: 40 Smoking pack-years: 40.00 Smoking status: Light tobacco smoker Tobacco type: cigars Second hand tobacco smoke exposure: No Additional smoking assessment comments: currently smokes an occasional cigar Alcohol intake: former Substance use: never Substance use type: does not use Other substance usage details: quit heavy drinking 20 yrs ago, occasional monthly Gender identity (if verbalized by the patient): Male Spiritual care concerns: No Agree to blood products: Yes
[2020-06-26 14:31] LABS: Alanine Aminotransferase 36 U/L (4-50); Albumin Level 4.6 g/dL (3.5-5.1); Alkaline Phosphatase 111 U/L (38-126); Aspartate Amino Transferase 113 U/L (17-59); Bilirubin,Total 0.6 mg/dL (0.2-1.3); Blood Urea Nitrogen 98 mg/dL (9-20); Calcium 9.3 mg/dL (8.4-10.2); Carbon Dioxide > 40 mmol/L (22-30); Chloride 63 mmol/L (98-107); Estimated CRCL calculation 27 ml/min; Estimated Glomerular Filt Rate 36; Glucose 161 mg/dL (75-110); Potassium 2.2 mmol/L (3.4-5.0); Sodium 112 mmol/L (137-145)
[2020-06-26] MEDS: POTASSIUM CHLORIDE 20 MEQ TABLET 40 MEQ PO (14:59)
[2020-06-26] MEDS: SODIUM CHLORIDE 0.9% IV 500 ML 999 ML IV CONT (16:23)
--- NOTE | 2020-06-26 17:09 | PCCCNOTE ---
Care Coordination spoke with pt about discharge plan. Explained to pt that it is not safe for him to return home as his significant other is unable to help him when he falls. Pt agrees that they need more help. Pt declines prison placement he states he wants to return home. [facility] spoke with Dr. Umesh Wahl and states they can provide additional help at home and will work on placement next week. Gave pt list of private caregivers and nursing homes in the area.
[2020-06-26] MEDS: SODIUM CHLORIDE 0.9% IV 1,000 ML 999 ML IV CONT (17:49)
== END 2020-06-26 18:15 | disposition hospice, home (50) ==
PROVIDERS: Emergency Provider General Practice; PCP Family Medicine
DX: I50.43 Acute on chronic combined systolic (congestive) and diastolic (congestive) heart failure (principal); E87.6 Hypokalemia; E87.1 Hypo-osmolality and hyponatremia; R62.7 Adult failure to thrive; I13.0 Hypertensive heart and chronic kidney disease with heart failure and stage 1 through stage 4 chronic kidney disease, or unspecified chronic kidney disease; N18.9 Chronic kidney disease, unspecified; Z66 Do not resuscitate; I25.10 Atherosclerotic heart disease of native coronary artery without angina pectoris; N40.0 Benign prostatic hyperplasia without lower urinary tract symptoms; G62.9 Polyneuropathy, unspecified; F41.9 Anxiety disorder, unspecified; F32.9 Major depressive disorder, single episode, unspecified; G47.33 Obstructive sleep apnea (adult) (pediatric); J84.10 Pulmonary fibrosis, unspecified; I27.20 Pulmonary hypertension, unspecified; M19.90 Unspecified osteoarthritis, unspecified site; G89.4 Chronic pain syndrome; F17.290 Nicotine dependence, other tobacco product, uncomplicated; Z96.659 Presence of unspecified artificial knee joint; Z79.82 Long term (current) use of aspirin; R00.1 Bradycardia, unspecified; I45.9 Conduction disorder, unspecified; I51.7 Cardiomegaly; R94.31 Abnormal electrocardiogram [ECG] [EKG]
CPT/HCPCS: 36415; 36600; 70450; 71046; 80053; 81001; 82375; 82805; 83050; 85025; 93005; 96374; 99284; A9270; J0131; J7030; J7040